=== PATIENT | female | born 1960 | race Caucasian/White ===

== ENCOUNTER 2024-04-16 17:32 | Emergency (ER) | payer OTHER, SELFPAY ==
[2024-04-16 17:35] VITALS: BP 178/95
--- NOTE | 2024-04-16 18:23 | ED.GENMED ---
History of Present Illness
General
Chief Complaint: Ear Problem
Source: patient
Exam Limitations: none
Time Seen by Provider: 04/16/24 17:55
Nursing documentation reviewed up to this point in time: agreed with
History of Present Illness
History of Present Illness:
63 y/o F with h/o previous otitis externa
says 3-4 days L ear pain
took naproxen earlier with mild relief
placed some drops of hydrogen peroxide and felt like she could hear better for a little but now has more muffled hearing
no facial swelkling, posterior ear pain, fever, chills, vomiting, congestion, sneezingt, sore throat
no h/o DM
denies any drainage from ear prior to placing the h2o2 drops
Past History
Past History
ED Past Medical History: Asthma, HTN, Psychiatric and Other
ED Past Surgical History: Other
Social History
Tobacco: Non-smoker
Alcohol: None
Drug: None
Personal:
Living: with family
Employment: Employed
Family History
Family History: Hypertension
Review of Systems
Review of Systems
Allergies reviewed?: Yes
All Other Systems: Not applicable
Phy Exam
Physical Exam
Physical Exam:
GENERAL: Alert , in no apparent distress
EYE: pupils equal and reactive
NECK: Supple
ENT: R tm clear
L ear canal moderate to severely swollen
what is visualized of posterior ear canal (tm region) is whitish
i cannot appreicate TM perforation
no blood
no mastoid tendernes
no [place]
no trismus
CARDIAC: Regular rate and rhythm, no edema
LUNGS: Clear breath sounds bilaterally, no acute respiratory distress, no wheezes/rales/rhonchi, occ cough
NEUROLOGICAL: Alert and oriented, no focal neuro deficits
SKIN: Warm and dry, skin intact.
PSYCH: Normal and appropriate interaction.
Course
Orders/Labs/Results
Orders:
Orders
04/16/24 18:08
Ciprofloxacin HCl [Cipro] 4 dropperett OTIC NOW STA
04/16/24 18:51
Acetaminophen [Tylenol] 1,000 mg PO NOW STA
Vital Signs
Initial and Last Documented VS:
Initial Vital Signs
Temp Pulse Resp BP Pulse Ox
98.1 F 93 18 178/95 98
04/16/24 17:35 04/16/24 17:35 04/16/24 17:35 04/16/24 17:35 04/16/24 17:35
Last Documented Vital Signs
Temp Pulse Resp BP Pulse Ox
98.1 F 93 18 178/95 98
04/16/24 17:35 04/16/24 17:35 04/16/24 17:35 04/16/24 17:35 04/16/24 17:35
MDM/Problems Addressed
Differential Diagnosis Includes:
OE, less likely perforated TM, om
MDM/Problems Addressed:
63 y/o F
who has been swimming recently
ear pain/hearing muffled a few days
pain worse todya
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
no uri sxs
moderate to severe edema canal mild erythema
no obvious bleeding/tm perf
no mastoid tenderness
no fever
no dm
ear wick inserted
cipro drops
*Critical Care Note
Total Time (30-74mins, 75-104mins- exclusive of procedures): Not Applicable
ED Attending Note
-
Portions of this chart may have been created with voice recognition software.� Occasional wrong word or��sound alike� substitutions may have occurred due to the inherent limitations of voice recognition software.
Discharge Plan
Departure
Patient Disposition: Home (Routine Discharge)
Date of Disposition: 04/16/24
Time of Disposition: 18:27
Patient with high blood pressure during this ER visit?: No
Condition: Fair
Covid-19: Not Applicable
Discharge Problem:
Acute Otitis Externa
Instructions: Outer Ear Infection (DC)
Prescriptions:
New
ciprofloxacin-dexamethasone 0.3-0.1 % drops,suspension
4 drp otic (ear) BID 7 Days Qty: 7.5 0RF
No Action
ibuprofen 600 MG tablet
600 mg PO Q6H Qty: 30 0RF
aspirin 325 MG tablet
325 mg PO DAILY PRN (Reason: pain)
albuterol sulfate [ProAir HFA] 90 mcg/actuation Hfa Aerosol Inhaler
1 puff INHALATION Q4HPRN PRN (Reason: shortness of breath) Qty: 8.5 0RF
(DME) Space Chamber Spacer
See Rx Instructions .Route Qty: 1 0RF
Rx Instructions:
As directed
prednisone 20 mg tablet
40 mg PO DAILY 5 Days Qty: 10 0RF
Referrals:
UNKNOWN - PT DOES,NOT KNOW [Unknown Provider] -
Activity Restrictions/Additional Instructions:
YOU HAVE AN EAR INFECTION
USE THE DROPS 4 DROPS IN YOUR LEFT EAR TWICE A DAY FOR 7 DAYS
THE EAR WICK WILL FALL OUT WHEN THE SWELLING DECREASES
FOLLOW UP WITH EAR NOSE AND THROAT DOCTOR NEEDED
YOU SHOULD TRY ZYRTEC OR CLARITIN ANTIHISTIMINE WELL
MOTRIN OR ALEVE FOR PAIN DIRECTED
RETURN FOR: SWELLING BEHIND THE EAR, FEVER, SEVERE PAIN, DRAINAGE OR ANY COCNERNS.
Interventions
Interventions:
*Risk Screen - Suicide Last Done: 04/16/24 17:35
*General Assessment Last Done: 04/16/24 17:35
*Neglect/Abuse Screening Last Done: 04/16/24 17:35
ED- Fall Risk Assessment Last Done: 04/16/24 19:02
*ED COVID-19 Vaccine History Last Done: 04/16/24 19:02
*Nursing Disposition Last Done: 04/16/24 19:02
Discharge Date and Time
Discharge Date/Time: 04/16/24 19:02
Print Language: IRAQI
[2024-04-16] MEDS: CIPRO 4 DROPPERETT OTIC (18:47)
[2024-04-16] MEDS: TYLENOL 1000 MG PO (18:57)
== END 2024-04-16 19:02 | disposition home or self-care (01) ==
LOC: EMR 17:32
PROVIDERS: EMERGENCY PHYSICIAN Emergency Medicine; FAMILY PHYSICIAN Family Medicine
DX: H60.502 Unspecified acute noninfective otitis externa, left ear (principal); I10 Essential (primary) hypertension; J45.909 Unspecified asthma, uncomplicated; M19.90 Unspecified osteoarthritis, unspecified site; F41.9 Anxiety disorder, unspecified; F32.A Depression, unspecified; Z88.8 Allergy status to other drugs, medicaments and biological substances; Z91.040 Latex allergy status
CPT/HCPCS: 99283

== ENCOUNTER 2024-06-18 19:01 | Emergency (ER) | payer OTHER, SELFPAY ==
[2024-06-18 19:02] VITALS: BP 140/76
[2024-06-18 19:26] LABS: % Basophils 0.6 % (0-2); % Eosinophils 0.4 % (0-6); % Immature Granulocytes 0.2 % (0-0.5); % Lymphocytes 27.4 % (20.5-51.1); % Monocytes 4.7 % (1.7-9.3); % Neutrophils 66.7 % (42.2-75.2); Absolute Lymphocytes 1.5 10^3/uL (1.2-3.4); Absolute Monocytes 0.3 10^3/uL (0.1-0.6); Absolute Neutrophils 3.5 10^3/uL (1.4-6.5); Hemoglobin 12.6 g/dL (12.0-16.0); Mean Corpuscular Hgb 28.5 pg (27.0-31.0); Mean Corpuscular Volume 79.2 fL (81.0-99.0); Mean Platelet Volume 9.4 fL (7.4-10.4); Nucleated Red Blood Cells % 0 %; Platelet Count 208 10^3/uL (130-400); Red Blood Cell Count 4.42 10^6/uL (4.20-5.40); Red Cell Dist. Width 12.8 % (11.5-14.5); White Blood Cell Count 5.3 10^3/uL (4.8-10.8)
[2024-06-18 19:39] LABS: ALT (SGPT) 27 U/L (0-35); AST (SGOT) 34 U/L (14-36); Albumin 4.3 g/dl (3.5-5.0); Alkaline Phosphatase 70 U/L (38-126); Blood Urea Nitrogen 14 mg/dl (7-17); Calcium 9.8 mg/dl (8.4-10.2); Carbon Dioxide 25 mmol/L (22-30); Chloride 95 mmol/L (98-107); Glucose 114 mg/dl (70-99); Potassium 3.7 mmol/L (3.5-5.1); Sodium 130 mmol/L (135-145); Total Bilirubin 0.3 mg/dl (0.2-1.3); Total Protein 6.3 g/dl (6.3-8.2); eGFR > 60.00
[2024-06-18 19:42] LABS: COVID-19 Antigen Negative (Negative)
[2024-06-18 19:54] LABS: Troponin I < 0.012 ng/ml
[2024-06-18 20:49] LABS: Urine Albumin Negative (Neg - Trace); Urine Bilirubin Negative (Negative); Urine Character Clear (Clear); Urine Color Yellow; Urine Glucose Negative (Negative); Urine Ketone Negative (Negative); Urine Leukocyte Negative (Negative); Urine Nitrite Negative (Negative); Urine Occult Blood Negative (Negative); Urine Urobilinogen Negative (Neg - 1+); Urine pH 6.5 (5.0-9.0)
--- NOTE | 2024-06-18 20:53 | ED.GENMED ---
History of Present Illness
General
Chief Complaint: Weakness
Source: patient
Exam Limitations: none
Time Seen by Provider: 06/18/24 20:21
History of Present Illness
History of Present Illness:
This is a 64 year old female that comes in with c/o feeling weak and tired. States that she does 3-12 hour shifts and then she has time off. Tonight was her third night and she went into work. States that she works a [employer] and she
was unable to lift the boxes. States that she just felt so tired and weak. States that when she got up today she didn't really eat. States that she has a cough. Denies any fever, chills, chest pain, SOB, abd pain, nausea, vomiting, diarrhea,
headache, dizziness, urinary burning.
Past History
Past History
ED Past Medical History: Asthma, HTN, Psychiatric (Anxiety, Depression, ), Other (Back pain, Uterine fibroid) and Other
ED Past Surgical History: Gynecological (Cyst removed from labia) and Other (Hemorrhoidectomy, )
Social History
Tobacco: Non-smoker
Alcohol: None
Drug: None
Personal:
Living: with family
Employment: Employed
Family History
Family History: Hypertension
Review of Systems
Review of Systems
All Other Systems: ROS reviewed and negative except as documented in HPI and ROS
Constitutional: Reports fatigue; Denies fever or chills
EENT: Reports no symptoms
Respiratory: Reports cough; Denies trouble breathing
Cardiac: Reports no symptoms; Denies chest pain
ABD/GI: Reports no symptoms; Denies abdominal pain, nausea, vomiting or diarrhea
: Reports no symptoms; Denies dysuria, frequency or urgency
Musculoskeletal: Reports no symptoms
Skin: Reports no symptoms
Neurological: Reports weakness; Denies dizzy or headache
Psychiatric: Reports no symptoms
Phy Exam
General Physical Exam
General Presentation: no apparent distress
General age: appears stated age
General Skin: warm and dry
General Habitus: normal
General Mental: alert
General Hydration: dry mucous membranes
ENT Exam
ENT Exam: TM's normal, pharynx normal and neck supple
Eye Exam
Eye Exam: EOMI
Cardiovascular Exam
Cardiovascular Exam: regular rate/rhythm, no edema, no murmur and normal peripheral pulses
Pulmonary Exam
Pulmonary Exam: lungs clear, no respiratory distress, no rales, chest non tender, no crackles, no rhonchi, no wheezing and no cough
Gastrointestinal Exam
Gastrointestinal Exam: normal bowel sounds, non tender, soft, no organomegaly, no pulsatile mass and non distended
Musculoskeletal Exam
Musculoskeletal Exam: full ROM and no edema
Skin Exam
Skin Exam: normal color, warm/dry, no rash and no petechia
Psychiatric Exam
Psychiatric Exam: normal mood/affect
Course
Orders/Labs/Results
Orders:
Orders
06/18/24 19:08
Electrocardiogram (*1) Urgent
Reason for Study: Fatigue / Weakness
EKG- Treatment ONCE
CXR2 [CR Chest - 2 Views ] Urgent
Comment:
Reason For Exam: cough
06/18/24 19:17
CMP [Comprehensive Metabolic Panel] Urgent
COVID-19 Antigen Urgent
Source: Nasal Swab
Complete Blood Count/With Diff Urgent
Troponin I Urgent
06/18/24 20:34
Urinalysis Reflex To Culture Urgent
Date Specimen was Collected: 06/18/24
Time Specimen was Collected: 19:08
Abnormal Lab Results
06/18/24
19:17
Hct 35.0 L %
(37.0-47.0)
MCV 79.2 L fL
(81.0-99.0)
Sodium 130 L mmol/L
(135-145)
Chloride 95 L mmol/L
(98-107)
Glucose 114 H mg/dl
(70-99)
06/18/24 19:17
06/18/24 19:17
Hyponatremia, Chloride low. Hyperglycemia. Troponin <0.012, COVID negative. Urine negative for infection.
Vital Signs
Initial and Last Documented VS:
Initial Vital Signs
Temp Pulse Resp BP Pulse Ox
98.6 F 75 20 140/76 98
06/18/24 19:02 06/18/24 19:02 06/18/24 19:02 06/18/24 19:02 06/18/24 19:02
Last Documented Vital Signs
Temp Pulse Resp BP Pulse Ox
98.6 F 75 20 140/76 97
06/18/24 19:02 06/18/24 19:02 06/18/24 19:02 06/18/24 19:02 06/18/24 20:41
MDM/Problems Addressed
Differential Diagnosis Includes:
fatigue, PNA, UTI
MDM/Problems Addressed:
This is a 64 year old female that comes in with c/o weakness/fatigue. States that this is her third night of 3-12 hour shifts. States that she was just to tired that she couldn't even lift he boxes.
Will check labs, Urine and chest x-ray. COVID.
Back into see patient. Explained that her Sodium is slightly low. Patient to try eating some canned soup or boxed food that is higher in sodium. Patient to follow up with the family doctor for further evaluation. Patient to return with any concerns.
Chronic conditions affecting care:
NA
Acute Exacerbation and/or Progression of Chronic Illness:
NA
*Radiology
Radiology exam reviewed: radiology read reviewed (Chest-No acute cardiopulmonary process)
*Pulse Oximetry
Patient hypoxic: no
*EKG
Interpreted by ED Provider?: Yes
Heart Rate: 70
Rate: normal
Rhythm: sinus
[place]: normal axis
Interval: normal interval
QRS Pattern: normal QRS
Ischemia: no ischemia
*Drawer Maker Interpretation
Rate: Drawer Maker- N/A
*Critical Care Note
Total Time (30-74mins, 75-104mins- exclusive of procedures): Not Applicable
ED Attending Note
-
Portions of this chart may have been created with voice recognition software.� Occasional wrong word or��sound alike� substitutions may have occurred due to the inherent limitations of voice recognition software.
Discharge Plan
Departure
Patient Disposition: Home (Routine Discharge)
Date of Disposition: 06/18/24
Time of Disposition: 22:05
Patient with high blood pressure during this ER visit?: Yes
Condition: Good
Covid-19: Negative COVID-19
Discharge Problem:
Fatigue
Instructions: Fatigue (DC), BLOOD PRESSURE
Prescriptions:
No Action
ibuprofen 600 MG tablet
600 mg PO Q6H Qty: 30 0RF
aspirin 325 MG tablet
325 mg PO DAILY PRN (Reason: pain)
albuterol sulfate [ProAir HFA] 90 mcg/actuation Hfa Aerosol Inhaler
1 puff INHALATION Q4HPRN PRN (Reason: shortness of breath) Qty: 8.5 0RF
(DME) Space Chamber Spacer
See Rx Instructions .Route Qty: 1 0RF
Rx Instructions:
As directed
prednisone 20 mg tablet
40 mg PO DAILY 5 Days Qty: 10 0RF
ciprofloxacin-dexamethasone 0.3-0.1 % drops,suspension
4 drp otic (ear) BID 7 Days Qty: 7.5 0RF
Activity Restrictions/Additional Instructions:
As discussed, your blood work shows that your sodium is a little low. Please try eating some canned soup or boxed food that is higher in sodium. You are negative for COVID and your urine is negative for infection. Your Chest X-ray is normal. Please
limit your water intake to 6-8oz glasses daily. Follow up with the family doctor for further evaluation. IF YOUHAVE ANY OTHER CONCERNS PLEASE RETURN TO THE EMERGENCY ROOM.
Interventions
Interventions:
*Risk Screen - Suicide Last Done: 06/18/24 19:02
*General Assessment Last Done: 06/18/24 19:02
*Neglect/Abuse Screening Last Done: 06/18/24 19:02
ED- Fall Risk Assessment Last Done: 06/18/24 19:02
*ED COVID-19 Vaccine History Last Done: 06/18/24 19:02
ED- Cardiac Assessment Last Done: 06/18/24 20:41
ED- Neurological Assessment Last Done: 06/18/24 20:41
ED- Pulmonary Assessment Last Done: 06/18/24 20:41
Discharge Date and Time
Print Language: [place]
[2024-06-18 22:22] VITALS: BP 128/74
== END 2024-06-18 22:23 | disposition home or self-care (01) ==
LOC: EMR 19:01
PROVIDERS: Emergency Medicine; EMERGENCY PHYSICIAN Emergency Medicine; FAMILY PHYSICIAN Family Medicine
DX: R53.83 Other fatigue (principal); Z11.52 Encounter for screening for COVID-19; I10 Essential (primary) hypertension
CPT/HCPCS: 99285; 71046; 80053; 81003; 84484; 85025; 87811; 93005

== ENCOUNTER → 2024-10-04 14:12 | Outpatient (REF) | payer OTHER, SELFPAY | LOC: WDC 14:12 | PROVIDERS: ATTENDING PHYSICIAN Family Medicine | DX: Z12.31 Encounter for screening mammogram for malignant neoplasm of breast (principal); M85.80 Other specified disorders of bone density and structure, unspecified site; Z13.820 Encounter for screening for osteoporosis | CPT/HCPCS: 77063; 77067; 77080 ==

== ENCOUNTER 2025-01-08 21:14 | Emergency (ER) | payer BC, SELFPAY ==
--- NOTE | 2025-01-08 21:19 | ED.GENMED ---
History of Present Illness
General
Chief Complaint: Dizziness
Time Seen by Provider: 01/08/25 21:19
History of Present Illness
History of Present Illness:
TIME OF INITIAL ENCOUNTER: 9:20 PM
HPI: Patient came in by ambulance. 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 When she stood up she suddenly had dizziness and then started vomiting. She did not pass out. She has worsening of her restless legs currently. She feels
that she has trouble keeping her eyes open. Her back is hurting her as well laying on the stretcher.
EXAM:
GENERAL: The patient appears somewhat uncomfortable
HEENT: Moist oral mucosa
CARDIOVASCULAR: No murmurs, normal heart rate, regular rhythm, No chest wall tenderness
PULMONARY: No respiratory distress, breath sounds are clear and equal
ABDOMEN: Soft with no peritoneal signs, no tenderness
NEUROLOGIC: Excellent strength all extremities, no coordination deficits
PSYCHIATRIC: Appears somewhat anxious
EXTREMITIES: Restless legs noted, nontender, no edema, moves all extremities equally
SKIN: No rash, no lesions
NUMBER AND COMPLEXITY OF PROBLEMS ADDRESSED AT THE ENCOUNTER
� Chronic conditions affecting care: High blood pressure, anxiety/depression, asthma
� Acute Exacerbation and/or Progression of Chronic Illness: This is an acute problem
� Differential Diagnosis includes: Exacerbation of restless leg syndrome, labyrinthitis, intracranial pathology, viral syndrome, BPPV
AMOUNT AND/OR COMPLEXITY OF DATA TO BE REVIEWED AND ANALYZED
� I performed an independent evaluation of and my interpretation is:
EKG:
CT: CT head personally reviewed and I see no acute abnormality
X-rays:
Laboratory Studies: Sodium is slightly low at 128, creatinine 1.1, CBC unremarkable
Other:
� Review of other/old records: I reviewed records, the patient is had several ED visits over the last several years, most recently related to fatigue.
� Clinical information was obtained by an independent historian: None needed
� Prescriptions/Medications Considered but not given:
� Further testing considered but not performed:
RISK OF COMPLICATIONS AND/OR MORBIDITY OR MORTALITY OF PATIENT MANAGEMENT
� Social determinants of health affecting care: Lives at home, is employed
� Discussion with other providers:
� Escalation of care including admission/observation vs risk of discharge considered: The patient was given IV fluids, Zofran, and Ativan upon arrival.
ANY OTHER UPDATES:
10:45 PM: On reassessment, patient appears much improved. Sodium is slightly low but overall she feels much better after IV fluids were given. Symptoms may have been related to positional vertigo however she has a nonfocal neurologic examination
and is overall much improved after meds given.
Past History
Past History
ED Past Medical History: Asthma, HTN, Psychiatric (Anxiety, Depression, ), Other (Back pain, Uterine fibroid) and Other
ED Past Surgical History: Gynecological (Cyst removed from labia) and Other (Hemorrhoidectomy, )
Social History
Tobacco: Non-smoker
Alcohol: None
Drug: None
Personal:
Living: with family
Employment: Employed
Family History
Family History: Hypertension
Phy Exam
Physical Exam
Physical Exam:
See HPI
Course
Orders/Labs/Results
Orders:
Orders
01/08/25 21:22
CT Head W/o Iv Contrast Urgent
Comment:
Reason For Exam: abrupt onset dizzy and vomiting
0.9% Sodium Chloride 1000 ml [Nss] 1,000 ml IV BOLUS
Lorazepam [Ativan] 1 mg IV NOW STA
Ondansetron Injectable [Zofran] 4 mg IV NOW STA
01/08/25 21:27
Basic Metabolic Panel Urgent
Complete Blood Count/With Diff Urgent
Abnormal Lab Results
01/08/25
21:27
Hct 34.6 L %
(37.0-47.0)
MCV 80.8 L fL
(81.0-99.0)
Sodium 128 L mmol/L
(135-145)
Carbon Dioxide 18 L mmol/L
(22-30)
Creatinine 1.1 H mg/dL
(0.6-1.0)
Glucose 127 H mg/dl
(70-99)
01/08/25 21:27
01/08/25 21:27
Vital Signs
Initial and Last Documented VS:
Initial Vital Signs
Temp Pulse Resp Pulse Ox
36.7 C 64 18 99
01/08/25 21:16 01/08/25 21:16 01/08/25 21:16 01/08/25 21:16
Last Documented Vital Signs
Temp Pulse Resp BP Pulse Ox
36.7 C 60 18 138/74 99
01/08/25 21:16 01/08/25 21:40 01/08/25 21:40 01/08/25 21:40 01/08/25 21:40
*Critical Care Note
Total Time (30-74mins, 75-104mins- exclusive of procedures): Not Applicable
ED Attending Note
-
Portions of this chart may have been created with voice recognition software.� Occasional wrong word or��sound alike� substitutions may have occurred due to the inherent limitations of voice recognition software.
Discharge Plan
Departure
Patient Disposition: Home (Routine Discharge)
Date of Disposition: 01/08/25
Time of Disposition: 22:59
Patient with high blood pressure during this ER visit?: Yes
Discharge Problem:
Dizziness
Instructions: Vertigo (a Type of Dizziness) (DC), BLOOD PRESSURE
Prescriptions:
No Action
ibuprofen 600 MG tablet
600 mg PO Q6H Qty: 30 0RF
aspirin 325 MG tablet
325 mg PO DAILY PRN (Reason: pain)
albuterol sulfate [ProAir HFA] 90 mcg/actuation Hfa Aerosol Inhaler
1 puff INHALATION Q4HPRN PRN (Reason: shortness of breath) Qty: 8.5 0RF
(DME) Space Chamber Spacer
See Rx Instructions .Route Qty: 1 0RF
Rx Instructions:
As directed
prednisone 20 mg tablet
40 mg PO DAILY 5 Days Qty: 10 0RF
ciprofloxacin-dexamethasone 0.3-0.1 % drops,suspension
4 drp otic (ear) BID 7 Days Qty: 7.5 0RF
Activity Restrictions/Additional Instructions:
Basic blood work is relatively unremarkable however your sodium level was slightly low. We did give you some IV fluid (salt water). We also gave you some Ativan as well as nausea medicine. Return here if worse or other concerns. CAT scan of the
brain was read by the radiologist and he did not see any abnormality.
Interventions
Interventions:
*Risk Screen - Suicide Last Done: 01/08/25 21:16
*General Assessment Last Done: 01/08/25 21:16
*Neglect/Abuse Screening Last Done: 01/08/25 21:16
ED- Neurological Assessment Last Done: 01/08/25 21:41
Discharge Date and Time
Print Language: ROMAN[place]
[2025-01-08 21:26] VITALS: BP 138/74
[2025-01-08] MEDS: ZOFRAN 4 MG IV (21:31)
[2025-01-08] MEDS: NSS 1000 IV (21:31)
[2025-01-08] MEDS: ATIVAN 1 MG IV (21:31)
[2025-01-08 21:39] VITALS: BMI 31.4
[2025-01-08 21:40] VITALS: BP 138/74
[2025-01-08 21:46] LABS: % Eosinophils 0.2 % (0-6); % Immature Granulocytes 0.5 % (0-0.5); % Lymphocytes 24.8 % (20.5-51.1); % Neutrophils 68.5 % (42.2-75.2); Absolute Basophils 0.1 10^3/uL (0-0.2); Absolute Lymphocytes 1.5 10^3/uL (1.2-3.4); Absolute Monocytes 0.3 10^3/uL (0.1-0.6); Absolute Neutrophils 4.3 10^3/uL (1.4-6.5); Hematocrit 34.6 % (37.0-47.0); Hemoglobin 12.5 g/dL (12.0-16.0); Mean Corp Hgb Conc. 36.1 g/dL (33.0-37.0); Mean Corpuscular Hgb 29.2 pg (27.0-31.0); Mean Corpuscular Volume 80.8 fL (81.0-99.0); Mean Platelet Volume 10.3 fL (7.4-10.4); Nucleated Red Blood Cells % 0 %; Platelet Count 196 10^3/uL (130-400); Red Blood Cell Count 4.28 10^6/uL (4.20-5.40); Red Cell Dist. Width 13.2 % (11.5-14.5); White Blood Cell Count 6.2 10^3/uL (4.8-10.8)
[2025-01-08 21:59] LABS: Blood Urea Nitrogen 15 mg/dl (7-17); Calcium 9.2 mg/dl (8.4-10.2); Carbon Dioxide 18 mmol/L (22-30); Chloride 103 mmol/L (98-107); Estimated Creatinine Clearance 55 ml/min; Glucose 127 mg/dl (70-99); Sodium 128 mmol/L (135-145); eGFR 55.76
[2025-01-08 22:00] VITALS: BP 128/79
[2025-01-08 23:01] VITALS: BP 173/86
== END 2025-01-08 23:30 | disposition home or self-care (01) ==
LOC: EMR 21:14
PROVIDERS: EMERGENCY PHYSICIAN Emergency Medicine; FAMILY PHYSICIAN Family Medicine
DX: R42 Dizziness and giddiness (principal); R11.10 Vomiting, unspecified; I10 Essential (primary) hypertension; J45.909 Unspecified asthma, uncomplicated; G25.81 Restless legs syndrome; F41.9 Anxiety disorder, unspecified
CPT/HCPCS: 96374; 96375; 96361; 99284; 70450; 80048; 85025; 93005

== ENCOUNTER 2025-01-30 02:45 | Inpatient (IN) | payer BC, SELFPAY ==
[2025-01-29] VITALS (7 sets, daily range): BP systolic 94–133; BP diastolic 61–110
--- NOTE | 2025-01-29 22:10 | ED.GENMED ---
History of Present Illness
General
Chief Complaint: Breathing Problem
Time Seen by Provider: 01/29/25 22:10
History of Present Illness
History of Present Illness:
TIME OF INITIAL EVALUATION
- 10:10 PM
REVIEW OF OLD RECORDS
- The patient was seen in the emergency department by me a couple of weeks ago with dizziness�at that time she felt better after IV fluids were given.
Note:
CHIEF COMPLAINT(S)
Nausea and vomiting.
HISTORY OF PRESENT ILLNESS
The patient is a 64-year-old female presenting with nausea and vomiting. The symptoms began approximately four weeks ago and were initially accompanied by dizziness and diarrhea. The patient reports episodes of syncope and difficulty ambulating. She
states her symptoms worsened after starting semaglutide (Wegovy) two months prior, which she discontinued two weeks ago due to adverse effects. She also reports persistent nausea exacerbated by minimal fluid intake, such as water or coffee, and
states, �Even a tablespoon of water' causes nausea. The patient describes a sensation of thick mucus in her throat and occasional cough productive of mucus. She denies current abdominal pain. No computed tomography (CT) scan of the abdomen has been
performed to date. The patient is awaiting a Gastroenterology (GI) appointment later in the month. She has utilized albuterol inhalation treatments for asthma exacerbations. Current medications include anti-nausea treatment.
ADDITIONAL HISTORY OBTAINED FROM SOURCES OTHER THAN THE PATIENT
According to the patient�s primary care visit, the nausea and dizziness were attributed to the use of semaglutide (Wegovy).
SOCIAL DETERMINANTS AFFECTING HEALTH
The patient mentions difficulty accessing timely GI and neurology appointments, noting frustrations with appointment availability in the area.
PHYSICAL EXAM
Nursing notes reviewed and vital signs reviewed.
- Throat: Mild erythema, airway patent.
PLAN
Administer intravenous fluids and antiemetic medication. Consider the use of an H2 bonnie such as famotidine (Pepcid) for gastric symptoms. Arrange for an abdominal CT scan to evaluate gastrointestinal concerns. Perform blood work. Reassess
symptoms after interventions and explore possible causes for prolonged symptoms.
DIFFERENTIAL DIAGNOSIS
The Differential Diagnosis includes, in no particular order and is not limited to:
1. Gastroesophageal reflux disease (GERD)
2. Peptic ulcer disease
3. Medication-induced gastritis
4. Viral gastroenteritis
5. Esophagitis
6. Gastroparesis
7. Adverse drug reaction to semaglutide
8. Hiatal hernia
9. Anxiety-related symptoms
10. Obstructive lung disease exacerbation (asthma-related nausea)
RADIOLOGY
- CT imaging obtained. This was obtained without IV contrast as the patient has SANJUANA. CT shows no evidence of bowel obstruction, noninflamed appendix, no evidence of diverticulitis, no kidney stones
EKG
- Sinus [address] abnormality, QTc 498 now prolonged
LABS
- White count normal at 8.7, hemoglobin 12.7, potassium 2.8, bicarb 16, creatinine 1.9 which is new compared to creatinine 1.1 in December
UPDATE
- The patient was given IV fluids and potassium orally and IV. CT imaging obtained. Gave IV fluids, Zofran, and Pepcid.
SUMMARY OF ENCOUNTER
The patient presented with nausea and vomiting, and there was a review of various symptoms, including low potassium levels and poor kidney function. Initial management has improved the patients symptoms.
DISPOSITION
The patient is to be admitted to the hospital for further evaluation and management.
ASSESSMENT
The patients potassium levels were found to be low at 2.8. Additionally, the patient has poor kidney function with a creatinine level of 1.9 and low bicarbonate levels, potentially due to dehydration.
EMERGENCY TREATMENTS ADMINISTERED
Intravenous potassium was administered to address hypokalemia.
INDEPENDENT REVIEW OF LABS AND INTERPRETATION OF TESTS
- My independent review of the CT scan is that there are no signs of blockages, infection, kidney stones, or perforated ulcer.
MEDICAL DECISION MAKING
1. Number & Complexity of Problems: Chronic conditions affecting care include nausea and vomiting, dehydration, and possibly impaired renal function.
2. Data Reviewed:
- Category 1: CT scan and laboratory results, including low potassium and bicarbonate levels, were reviewed.
3. Risk: Consideration of admission was made due to the complexity of electrolyte imbalances and potential dehydration. Outpatient management is not appropriate given poor kidney function and low potassium levels.
PATHOLOGIES TO CONSIDER
- Electrolyte imbalance (hypokalemia).
- Acute kidney injury or chronic kidney disease (based on creatinine level).
- Dehydration-related complications.
- Potential for peptic ulcer disease or gastritis.
Past History
Past History
ED Past Medical History: Asthma, HTN, Psychiatric (Anxiety, Depression, ), Other (Back pain, Uterine fibroid) and Other
ED Past Surgical History: Gynecological (Cyst removed from labia) and Other (Hemorrhoidectomy, )
Social History
Tobacco: Non-smoker
Alcohol: None
Drug: None
Personal:
Living: with family
Employment: Employed
Family History
Family History: Hypertension
Phy Exam
Physical Exam
Physical Exam:
See HPI
Scores
Heart Failure Risk
Heart Failure Risk Score: Not Applicable
Course
Orders/Labs/Results
Orders:
Orders
01/29/25 22:17
0.9% Sodium Chloride 1000 ml [Nss] 1,000 ml IV BOLUS
Famotidine [Pepcid] 20 mg IV NOW STA
Ondansetron HCl [Zofran] 4 mg PO NOW STA
01/29/25 22:26
Complete Blood Count/With Diff Urgent
Comprehensive Metabolic Panel Urgent
Lipase Urgent
01/29/25 23:12
CT Abd/pel Without Iv Or Oral Urgent
Comment:
Reason For Exam: upper abd pain renal insuff
01/29/25 23:13
Potassium Chloride [KCl] 20 meq PO NOW STA
01/29/25 23:22
Potassium Chloride [KCl] 40 meq Dextrose 5%/Water 250 ml [D5w] 250 ml IV NOW
01/29/25 23:50
Electrocardiogram (*1) Urgent
Reason for Study: Abdominal Pain
EKG- Treatment ONCE
Abnormal Lab Results
01/29/25
22:26
Hct 35.1 L %
(37.0-47.0)
MCV 80.9 L fL
(81.0-99.0)
Abs Immat Gran (auto) 0.1 H 10^3/uL
(0-0.05)
Immature Gran % 0.6 H %
(0-0.5)
Potassium 2.8 L mmol/L
(3.5-5.1)
Carbon Dioxide 16 L mmol/L
(22-30)
BUN 25 H mg/dl
(7-17)
Creatinine 1.9 H mg/dL
(0.6-1.0)
Calcium 10.3 H mg/dl
(8.4-10.2)
01/29/25 22:26
01/29/25 22:26
Vital Signs
Initial and Last Documented VS:
Initial Vital Signs
Temp Pulse Resp BP Pulse Ox
37.0 C 101 20 133/110 98
01/29/25 18:53 01/29/25 18:53 01/29/25 18:53 01/29/25 18:53 01/29/25 18:53
Last Documented Vital Signs
Temp Pulse Resp BP Pulse Ox
37.0 C 73 28 96/80 97
01/29/25 18:53 01/30/25 00:01 01/30/25 00:01 01/30/25 00:01 01/29/25 22:11
*Pulse Oximetry
SaO2: 97
Oxygen Mode of Delivery: Room air
Patient hypoxic: no
*Critical Care Note
Total Time (30-74mins, 75-104mins- exclusive of procedures): Not Applicable
ED Attending Note
-
Portions of this chart may have been created with voice recognition software.� Occasional wrong word or��sound alike� substitutions may have occurred due to the inherent limitations of voice recognition software.
Discharge Plan
Departure
Prescriptions:
No Action
ibuprofen 600 MG tablet
600 mg PO Q6H Qty: 30 0RF
aspirin 325 MG tablet
325 mg PO DAILY PRN (Reason: pain)
albuterol sulfate [ProAir HFA] 90 mcg/actuation Hfa Aerosol Inhaler
1 puff INHALATION Q4HPRN PRN (Reason: shortness of breath) Qty: 8.5 0RF
(DME) Space Chamber Spacer
See Rx Instructions .Route Qty: 1 0RF
Rx Instructions:
As directed
prednisone 20 mg tablet
40 mg PO DAILY 5 Days Qty: 10 0RF
ciprofloxacin-dexamethasone 0.3-0.1 % drops,suspension
4 drp otic (ear) BID 7 Days Qty: 7.5 0RF
Referrals:
Osiel Thomas MD [Family Provider, Family Practice]
Interventions
Interventions:
*Risk Screen - Suicide Last Done: 01/29/25 19:20
*General Assessment Last Done: 01/29/25 18:53
*Neglect/Abuse Screening Last Done: 01/29/25 19:20
*ED- Fall Risk Assessment Last Done: 01/29/25 19:20
*ED COVID-19 Vaccine History Last Done: 01/29/25 19:20
ED- Cardiac Assessment Last Done: 01/29/25 19:20
ED- Pulmonary Assessment Last Done: 01/29/25 19:20
Discharge Date and Time
Print Language: SWISS
[2025-01-29] MEDS: PEPCID 20 MG IV (22:24)
[2025-01-29] MEDS: ZOFRAN 4 MG PO (22:24)
[2025-01-29] MEDS: NSS 1000 IV (22:25)
[2025-01-29 22:47] LABS: % Basophils 0.5 % (0-2); % Eosinophils 2.2 % (0-6); % Immature Granulocytes 0.6 % (0-0.5); % Lymphocytes 32.7 % (20.5-51.1); % Monocytes 7.1 % (1.7-9.3); % Neutrophils 56.9 % (42.2-75.2); Absolute Eosinophils 0.2 10^3/uL (0-0.7); Absolute Immature Granulocytes 0.1 10^3/uL (0-0.05); Absolute Lymphocytes 2.9 10^3/uL (1.2-3.4); Absolute Monocytes 0.6 10^3/uL (0.1-0.6); Hematocrit 35.1 % (37.0-47.0); Hemoglobin 12.7 g/dL (12.0-16.0); Mean Corp Hgb Conc. 36.2 g/dL (33.0-37.0); Mean Corpuscular Hgb 29.3 pg (27.0-31.0); Mean Corpuscular Volume 80.9 fL (81.0-99.0); Mean Platelet Volume 9.7 fL (7.4-10.4); Nucleated Red Blood Cells % 0 %; Platelet Count 357 10^3/uL (130-400); Red Blood Cell Count 4.34 10^6/uL (4.20-5.40); Red Cell Dist. Width 12.5 % (11.5-14.5); White Blood Cell Count 8.7 10^3/uL (4.8-10.8)
[2025-01-29 23:07] LABS: ALT (SGPT) 33 U/L (0-35); AST (SGOT) 26 U/L (14-36); Albumin 4.4 g/dl (3.5-5.0); Alkaline Phosphatase 88 U/L (38-126); Blood Urea Nitrogen 25 mg/dl (7-17); Calcium 10.3 mg/dl (8.4-10.2); Carbon Dioxide 16 mmol/L (22-30); Chloride 107 mmol/L (98-107); Glucose 84 mg/dl (70-99); Lipase 156 U/L (23-300); Potassium 2.8 mmol/L (3.5-5.1); Sodium 135 mmol/L (135-145); Total Bilirubin 0.7 mg/dl (0.2-1.3); Total Protein 6.7 g/dl (6.3-8.2); eGFR 28.94
[2025-01-29] MEDS: KCL 20 MEQ PO (23:47)
[2025-01-29] MEDS: KCL 270 MEQ IV (23:47)
[2025-01-30] VITALS (9 sets, daily range): BP systolic 96–136; BP diastolic 52–80; PULSE 60–88; BMI 28.1; BMI 28.6
[2025-01-30] MEDS: PROTONIX IV 40 MG IV (01:23)
--- NOTE | 2025-01-30 02:01 | HPS.HSE ---
Family Physician
-
Family Physician: Osiel Thomas
Chief Complaint
-
N/V
History of Present Illness
Patient is a 64y F with PMH significant for bipolar disorder and hypertension who presents to ED complaining of N/V and dizziness x several weeks. Patient states that she started on Wegovy about 3 months ago for weight loss. She developed N/V
and dizziness about one month ago. She states that she had a syncopal episode while at work and was seen here in the ED on 01/08. Her symptoms were attributed to Wegovy and patient discontinued this. She states that her last dose was about one
month ago now. Unfortunately, she has continued to have nausea, emesis, diarrhea and generalized weakness. She complains of intermittent dizziness / room spinning sensation.
She further notes that she was started on abx 7-10 days ago for UTI - she is not sure which abx.
No other recent med changes.
Medical History
Past Medical History
Past Medical History: Reports Other
Additional Past Medical History:
Hypertension
Bipolar Disorder
GERD
Asthma
Obesity
Past Surgical History: Reports Other
Additional Past Surgical History:
Hemorrhoidectomy
Labia Resection (cyst)
Social History
Tobacco: Non-smoker
Alcohol: None
Drug: None
Family History
Family History: Not pertinent
Allergies / Home Medications
Allergies reflects when Allergies were last updated in [employer].
Home Medications with original date entered in [facility]
Allergy/Medication List:
Patient knows some medication names, but no doses / frequency data.
Will need to confirm / reconcile in the AM.
If medication reconciliation has not been performed, why?: Medication List N/A
Review of Systems
-
History Source: Patient
A 12 point ROS was completed and negative except as noted: Yes
Constitutional: Reports Fatigue; Denies Fever or Chills
EENT: Denies Sore Throat
Respiratory: Denies Cough or Trouble Breathing
Cardiac: Denies Chest Pain or Palpitations
Abdomen/GI: Reports Nausea, Vomiting and Diarrhea; Denies Abdominal Pain, Bloody Stools or Black Stools
: Reports Dysuria; Denies Flank Pain, Incontinence or Bleeding
Musculoskeletal: Denies Joint Pain or Edema
Neurological: Reports Dizzy, Headache and Weakness; Denies Numbness
Psych: Denies Depression or Anxiety
Physical Exam
Vital Signs
Vital Signs
Temp Pulse Resp BP Pulse Ox
98.6 F 78 32 111/79 97
01/29/25 18:53 01/30/25 01:30 01/30/25 01:15 01/30/25 01:00 01/29/25 22:11
Physical Exam
General: Other (Somewhat restless / hyperactive 64y F.)
HEENT: Other (Dry MM, neck supple.)
Respiratory: Clear; No Wheezes, Rales or Rhonchi
Cardiac: S1/S2 and Regular Rhythm; No Murmur
GI: Soft, Non Tender, Non Distended and Normal Bowel Sounds
Musculoskeletal: No Clubbing, No Cyanosis and No Edema
Neuro: AO x 3 and Nonfocal/grossly intact
Laboratory Results
-
01/29/25 22:26
01/29/25 22:26
Laboratory Results
Total Bilirubin 0.7 mg/dl (0.2-1.3) 01/29/25 22:26
AST 26 U/L (14-36) 01/29/25 22:26
ALT 33 U/L (0-35) 01/29/25 22:26
Alkaline Phosphatase 88 U/L (38-126) 01/29/25 22:26
Lipase 156 U/L (23-300) 01/29/25 22:26
Impression/Plan
-
A/P: Patient is a 64y F with PMH significant for bipolar disorder and hypertension who presents to ED complaining of intractable N/V/D x weeks.
Intractable N/V/D
SANJUANA secondary to the above
Hypokalemia secondary to the above
Hypercalcemia secondary to the above
Non-Gapped Metabolic Acidosis secondary to the above
- Admit for further evaluation and treatment.
- SCr = 1.9 compared to prior baseline of 1.1.
- IVF support / electrolyte replacement.
- Supportive care / antiemetics / etc.
- Symptoms potentially due to Wegovy - though patient states her last dose was one month ago with no improvement in N/V.
- Given concurrent dizziness, will check MR brain in the AM to rule-out posterior CVA, etc.
- Follow for improvement in labs / lytes and adjust IVFs as needed.
- Follow for improvement in symptoms.
Recent UTI
- Patient reports diagnosis of UTI > 1 week ago and indicates that she has been on abx since that time.
- No further dysuria or other symptoms.
- Would hold further abx for now as > 1 week is certainly sufficient course.
- ? if abx are clouding issue re: GI symptoms.
- Follow for any new / recurrent symptoms.
Benign Hypertension
- Hold hypertensive medications acutely.
Bipolar Disorder
- Somewhat restless / hyperactive in the ED.
- Continue psychotropic med regimen.
- Ordered some meds based on patient history and prior records in Med Summary.
- Need to confirm / clarify with pharmacy in the Am and adjust as needed.
- Monitor for any increase in agitation / anxiety / etc.
Hypothyroidism
- Update TFTs. Ordered 25mcg T4 supplementation based on old records - adjust if needed.
Obesity due to excess calories
- Remain off of Wegovy or similar agents.
- Encourage healthy diet / increased activity with goal of weight loss.
DVT Prophylaxis: Lovenox
Code Status: Full
[2025-01-30] MEDS: KLONOPIN 0.5 MG PO ×3 (02:29→19:44)
[2025-01-30] MEDS: SYNTHROID 25 MCG PO (03:44)
[2025-01-30] MEDS: NSS with KCL 20 MEQ 1000 IV ×3 (04:44→18:15)
[2025-01-30 07:46] LABS: Hematocrit 32.1 % (37.0-47.0); Hemoglobin 11.2 g/dL (12.0-16.0); Mean Corp Hgb Conc. 34.9 g/dL (33.0-37.0); Mean Corpuscular Hgb 29.3 pg (27.0-31.0); Mean Platelet Volume 9.8 fL (7.4-10.4); Platelet Count 312 10^3/uL (130-400); Red Blood Cell Count 3.82 10^6/uL (4.20-5.40); Red Cell Dist. Width 13.2 % (11.5-14.5); White Blood Cell Count 4.5 10^3/uL (4.8-10.8)
[2025-01-30] MEDS: GEODON 60 MG PO (07:51)
[2025-01-30] MEDS: LAMICTAL 75 MG PO ×2 (07:51→19:44)
[2025-01-30] MEDS: PEPCID 20 MG PO (07:52)
[2025-01-30 08:24] LABS: Blood Urea Nitrogen 21 mg/dl (7-17); Calcium 9.1 mg/dl (8.4-10.2); Carbon Dioxide 21 mmol/L (22-30); Chloride 112 mmol/L (98-107); Estimated Creatinine Clearance 37 ml/min; Glucose 93 mg/dl (70-99); Potassium 4.1 mmol/L (3.5-5.1); Sodium 139 mmol/L (135-145); eGFR 35.57
[2025-01-30 09:18] LABS: TSH Reflex To Free T4 1.03 uIU/ml (0.47-4.68)
--- NOTE | 2025-01-30 12:29 | CM ---
CM reviewed chart, patient seen bedside with and provided from [facility] [employer] [facility]. Patient resides with and brother in a single story home, few steps to enter. Patient denies use of DME, VN/SNF history. Patient
confirms PCP Osiel Thomas, pharmacy [facility], confirms prescription coverage. Patient reports she is experiencing financial insecurities as she has been unable to work for four weeks, currently working with [employer] [facility] to assist.
Patient interested in resources from [email or web address], will provide to patient. CM will continue to follow for all discharge planning needs.
Plan; home with spouse when stable
--- NOTE | 2025-01-30 12:34 | W.PN.UPDATE ---
Update Note
Progress Note Update
Patient seen and examined at bedside. Nonbillable note
General: Other (Somewhat restless / hyperactive 64y F.)
HEENT: Other (Dry MM, neck supple.)
Respiratory: Clear; No Wheezes, Rales or Rhonchi
Cardiac: S1/S2 and Regular Rhythm; No Murmur
GI: Soft, Non Tender, Non Distended and Normal Bowel Sounds
Musculoskeletal: No Edema
Neuro: AO x 3 and Nonfocal/grossly intact
Intractable N/V/D
SANJUANA secondary to the above
Hypokalemia secondary to the above
Hypercalcemia secondary to the above
Non-Gapped Metabolic Acidosis secondary to the above
- SCr = 1.9 compared to prior baseline of 1.1.
- Supportive care / antiemetics / etc.
- Symptoms potentially due to Wegovy - though patient states her last dose was one month ago with no improvement in N/V.
- Given concurrent dizziness, check MRI
SANJUANA likely secondary to dehydration
Continue fluids
Monitor creatinine, 1.6 today
Check UA
Recent UTI
- Patient reports diagnosis of UTI > 1 week ago and indicates that she has been on abx since that time.
- No further dysuria or other symptoms.
- Would hold further abx for now as > 1 week is certainly sufficient course.
- ? if abx are clouding issue re: GI symptoms.
- Follow for any new / recurrent symptoms.
Benign Hypertension
- Hold hypertensive medications acutely.
Bipolar Disorder
- Somewhat restless / hyperactive in the ED.
- Continue psychotropic med regimen.
- Ordered some meds based on patient history and prior records in Med Summary. RN notified for med rec
- Need to confirm / clarify with pharmacy in the Am and adjust as needed.
- Monitor for any increase in agitation / anxiety / etc.
Hypothyroidism
- Ordered 25mcg T4 supplementation based on old records - adjust if needed. TSH wnl
Obesity due to excess calories
- Remain off of Wegovy or similar agents.
- Encourage healthy diet / increased activity with goal of weight loss.
DVT Prophylaxis: Lovenox
Code Status: Full
[2025-01-30 12:56] LABS: Urine Albumin 1+ (Neg - Trace); Urine Bilirubin Negative (Negative); Urine Character Slightly Cloudy (Clear); Urine Color Yellow; Urine Glucose Negative (Negative); Urine Ketone Negative (Negative); Urine Leukocyte 3+ (Negative); Urine Nitrite Negative (Negative); Urine Occult Blood 1+ (Negative); Urine Urobilinogen Negative (Neg - 1+)
[2025-01-30 13:39] LABS: Urine Amorphous Seen; Urine Squamous Cell 21-25 /LPF (Few); Urine Urothelial Cell >30 /LPF (FEW)
[2025-01-30 13:41] LABS: Urine White Cell 60-70 /HPF (0-5)
[2025-01-30 13:44] LABS: Urine Bacteria Few (Negative)
[2025-01-30] MEDS: TYLENOL 650 MG PO (15:39)
[2025-01-30] MEDS: LOVENOX 40 MG SC (17:56)
--- NOTE | 2025-01-30 18:31 | PTCARENOTE ---
Family member dropped off patient's home medications for completion of med rec. MD notified of med rec completion, medications walked down to be stored in pharmacy.
[2025-01-31] VITALS (9 sets, daily range): BP systolic 104–177; BP diastolic 59–71; PULSE 72–81; O2SAT 98; BMI 29.1
[2025-01-31] MEDS: NSS with KCL 20 MEQ 1000 IV ×2 (00:55→07:33)
--- NOTE | 2025-01-31 03:45 | PTCARENOTE ---
Pt removed telemetry stickers and is refusing to put them back on d/t itching and redness caused by the telemetry stickers. BRIDGE DESIGN ENGINEER Anastasia Barragan notified, order for 1x hydrocortisone cream placed and applied to pt's chest.
0600: Pt reports that itching has resolved and redness on her chest is improving. Pt is still refusing to have her telemetry stickers replaced, stating 'I'm sorry I just can't'. Will pass along to day shift RN.
[2025-01-31] MEDS: HYDROCORTISONE 1% CREAM 1 APPLIC TOPICAL (05:02)
[2025-01-31] MEDS: SYNTHROID 25 MCG PO (06:06)
[2025-01-31] MEDS: LAMICTAL 75 MG PO (07:58)
[2025-01-31] MEDS: PEPCID 20 MG PO (07:59)
[2025-01-31] MEDS: GEODON 60 MG PO (07:59)
[2025-01-31] MEDS: KLONOPIN 0.5 MG PO ×2 (07:59→19:48)
[2025-01-31 08:02] LABS: % Basophils 0.9 % (0-2); % Eosinophils 1.2 % (0-6); % Lymphocytes 40.5 % (20.5-51.1); % Monocytes 8.5 % (1.7-9.3); % Neutrophils 48.9 % (42.2-75.2); Absolute Eosinophils 0.1 10^3/uL (0-0.7); Absolute Lymphocytes 1.7 10^3/uL (1.2-3.4); Absolute Monocytes 0.4 10^3/uL (0.1-0.6); Absolute Neutrophils 2.1 10^3/uL (1.4-6.5); Hematocrit 31.9 % (37.0-47.0); Hemoglobin 10.7 g/dL (12.0-16.0); Mean Corp Hgb Conc. 33.5 g/dL (33.0-37.0); Mean Corpuscular Hgb 28.3 pg (27.0-31.0); Mean Corpuscular Volume 84.4 fL (81.0-99.0); Mean Platelet Volume 9.7 fL (7.4-10.4); Nucleated Red Blood Cells % 0 %; Platelet Count 280 10^3/uL (130-400); Red Blood Cell Count 3.78 10^6/uL (4.20-5.40); Red Cell Dist. Width 13.5 % (11.5-14.5); White Blood Cell Count 4.2 10^3/uL (4.8-10.8)
[2025-01-31 08:46] LABS: Blood Urea Nitrogen 11 mg/dl (7-17); Calcium 8.9 mg/dl (8.4-10.2); Carbon Dioxide 15 mmol/L (22-30); Chloride 120 mmol/L (98-107); Estimated Creatinine Clearance 54 ml/min; Glucose 81 mg/dl (70-99); Potassium 4.5 mmol/L (3.5-5.1); Sodium 141 mmol/L (135-145); eGFR 55.76
[2025-01-31] MEDS: LEXAPRO 20 MG PO (09:24)
[2025-01-31] MEDS: SODIUM BICARBONATE 1300 MG PO ×3 (09:24→21:38)
--- NOTE | 2025-01-31 10:56 | CM ---
CM reviewed chart, patient seen bedside with . CM discussed PT recommendations of VN, patient and agreeable, patient reports she has been weak from admitting back and forth to hospital, agreeable to referral to VN, TT to VN
liaison with referral. CM will continue to follow for all discharge planning needs.
Plan; home, referral to VN pending acceptance
[2025-01-31] MEDS: BENTYL PO (11:17)
--- NOTE | 2025-01-31 11:46 | VNURNOTE ---
Home Health Liaison met with patient and spouse at bedside to discuss [facility] nurse/therapy, visits, schedule and homebound status. Both are agreeable and understand that visits at home will be 2-3 x per week to assess and teach medical management.
Both are aware that [facility] will contact them for start of care in 1-2 days after discharge from .
[facility] referral completed in [facility].
[2025-01-31] MEDS: ATARAX 25 MG PO ×2 (11:49→21:40)
--- NOTE | 2025-01-31 12:39 | W.PN.HOSP.TC ---
Today's Communication/Plan
-
Monitor vital signs see plan
Sodium bicarb
Monitor renal function
Hopeful discharge tomorrow if tolerating diet
Assessment / Plan
Assessment / Plan
Intractable N/V/D
SANJUANA secondary to the above
Hypokalemia secondary to the above
Hypercalcemia secondary to the above
Non-Gapped Metabolic Acidosis secondary to the above
- SCr = 1.9 compared to prior baseline of 1.1.
- Supportive care / antiemetics / etc.
- Symptoms potentially due to Wegovy - though patient states her last dose was one month ago with no improvement in N/V.
- Given concurrent dizziness, MRI brain without acute intracranial abnormality
Sodium bicarb
SANJUANA likely secondary to dehydration
Continue fluids
Monitor creatinine, improving
Ucx with gram neg bacilli; monitor
Recent UTI
- Patient reports diagnosis of UTI > 1 week ago and indicates that she has been on abx since that time.
- No further dysuria or other symptoms.
- Would hold further abx for now as > 1 week is certainly sufficient course.
- ? if abx are clouding issue re: GI symptoms.
- Follow for any new / recurrent symptoms.
Benign Hypertension
- Hold hypertensive medications acutely.
Bipolar Disorder
- Somewhat restless / hyperactive in the ED.
- Continue psychotropic med regimen.
per patient lamictal is 50mg daily
Hypothyroidism
cw synthroid
Obesity due to excess calories
- Remain off of Wegovy or similar agents.
- Encourage healthy diet / increased activity with goal of weight loss.
DVT Prophylaxis: Lovenox
Code Status: Full
Anticipated Discharge: Within 24 hours
Subjective/Interval History
-
Date of Service: January 31, 2025
Denies pain
Objective Data
-
Labs:
Laboratory Results
01/31/25
07:46
WBC 4.2 L
Hgb 10.7 L
Hct 31.9 L
Plt Count 280
Sodium 141
Potassium 4.5
Chloride 120 H
Carbon Dioxide 15 L
BUN 11
Creatinine 1.1 H
Glucose 81
Calcium 8.9
Vital Signs:
Vital Signs
Temp Pulse Resp BP Pulse Ox
97.6 F 72 18 126/68 98
01/31/25 11:20 01/31/25 11:20 01/31/25 11:20 01/31/25 11:20 01/31/25 11:20
I&O
01/30/25 01/31/25 02/01/25
06:59 06:59 06:59
Intake Total 780 / 780 1979
Balance 780 / 780 1979
[2025-01-31] MEDS: BENTYL 20 MG PO ×3 (13:27→21:38)
[2025-01-31] MEDS: NON-FORMULARY ITEM 250 MG PO (13:27)
[2025-01-31] MEDS: LOVENOX 40 MG SC (17:15)
[2025-01-31] MEDS: MINIPRESS 1 MG PO (19:48)
[2025-02-01] VITALS (9 sets, daily range): BP systolic 91–143; BP diastolic 60–75; PULSE 64–97; BMI 29.2
[2025-02-01] MEDS: SYNTHROID 25 MCG PO (05:44)
[2025-02-01 08:46] LABS: Hematocrit 32.5 % (37.0-47.0); Hemoglobin 10.9 g/dL (12.0-16.0); Mean Corp Hgb Conc. 33.5 g/dL (33.0-37.0); Mean Corpuscular Hgb 28.6 pg (27.0-31.0); Mean Corpuscular Volume 85.3 fL (81.0-99.0); Mean Platelet Volume 10.2 fL (7.4-10.4); Platelet Count 295 10^3/uL (130-400); Red Blood Cell Count 3.81 10^6/uL (4.20-5.40); Red Cell Dist. Width 13.9 % (11.5-14.5); White Blood Cell Count 3.7 10^3/uL (4.8-10.8)
[2025-02-01 09:16] LABS: Blood Urea Nitrogen 8 mg/dl (7-17); Calcium 9.1 mg/dl (8.4-10.2); Carbon Dioxide 20 mmol/L (22-30); Chloride 115 mmol/L (98-107); Estimated Creatinine Clearance 60 ml/min; Glucose 81 mg/dl (70-99); Potassium 4.2 mmol/L (3.5-5.1); Sodium 140 mmol/L (135-145); eGFR > 60.00
[2025-02-01] MEDS: NON-FORMULARY ITEM 250 MG PO (09:24)
[2025-02-01] MEDS: BENTYL 20 MG PO ×4 (09:24→21:06)
[2025-02-01] MEDS: LAMICTAL 50 MG PO (09:25)
[2025-02-01] MEDS: KLONOPIN 0.5 MG PO ×2 (09:26→20:22)
[2025-02-01] MEDS: PEPCID 20 MG PO (09:26)
[2025-02-01] MEDS: LEXAPRO 20 MG PO (09:26)
[2025-02-01] MEDS: GEODON 60 MG PO (09:27)
[2025-02-01] MEDS: MINIPRESS 1 MG PO ×2 (09:27→20:22)
[2025-02-01 10:37] LABS: Absolute Neutrophils -Man Diff 1.2 10^3/uL (1.4-6.5); Band Neutrophils 0 % (0-3); Lymphocytes 60 % (20-51); Monocytes 7 % (2-9); Segmented Neutrophils 33 % (42-75)
[2025-02-01 10:38] LABS: Anisocytosis Slight; Normal RBC Morphology No; Platelets Checked YES
[2025-02-01 10:40] LABS: Target Cells FEW; Total Cells Counted 100
--- NOTE | 2025-02-01 12:01 | W.PN.HOSP.TC ---
Today's Communication/Plan
-
monitor vitals
see plan
Monitor orthostatics
If symptoms do not improve then will need GI evaluation
Add PPI
Gentle hydration
Assessment / Plan
Assessment / Plan
Intractable N/V/D
SANJUANA secondary to the above
Hypokalemia secondary to the above
Hypercalcemia secondary to the above
Non-Gapped Metabolic Acidosis secondary to the above
- SCr = 1.9 compared to prior baseline of 1.1.
- Supportive care / antiemetics / etc.
- Symptoms potentially due to Wegovy - though patient states her last dose was one month ago with no improvement in N/V.
- Given concurrent dizziness, MRI brain without acute intracranial abnormality
finished sodium bicarb
appears diarrhea is better
does feel like she gets nauseous and feel for vomiting when she eats. If symptoms do not improve then get GI evaluation
Add PPI
SANJUANA likely secondary to dehydration
Continue fluids
Monitor creatinine, improving
Ucx with gram neg bacilli; monitor
Recent UTI
- Patient reports diagnosis of UTI > 1 week ago and indicates that she has been on abx since that time.
- No further dysuria or other symptoms.
- Would hold further abx for now as > 1 week is certainly sufficient course.
- Follow for any new / recurrent symptoms.
urine cx with MDRO ecoli
Orthostatic hypotension
Gentle hydration
TEDS
monitor
Benign Hypertension
- Hold hypertensive medications acutely.
Bipolar Disorder
- Somewhat restless / hyperactive in the ED.
- Continue psychotropic med regimen.
per patient lamictal is 50mg daily
Hypothyroidism
cw synthroid
Obesity due to excess calories
- Remain off of Wegovy or similar agents.
- Encourage healthy diet / increased activity with goal of weight loss.
DVT Prophylaxis: Lovenox
Code Status: Full
General: Other (Somewhat restless / hyperactive 64y F.)
HEENT: Other (Dry MM, neck supple.)
Respiratory: Clear; No Wheezes, Rales or Rhonchi
Cardiac: S1/S2 and Regular Rhythm; No Murmur
GI: Soft, Non Tender, Non Distended and Normal Bowel Sounds
Musculoskeletal: No Edema
Neuro: AO x 3 and Nonfocal/grossly intact
I spent a total of 52 minutes with the patient or on the floor. More than 50% of this time involved counseling and coordination of care.
Anticipated Discharge: Within 24 hours
Subjective/Interval History
-
Date of Service: February 01, 2025
has some nausea
Objective Data
-
Labs:
Laboratory Results
02/01/25
07:25
WBC 3.7 L
Hgb 10.9 L
Hct 32.5 L
Plt Count 295
Sodium 140
Potassium 4.2
Chloride 115 H
Carbon Dioxide 20 L
BUN 8
Creatinine 1.0
Glucose 81
Calcium 9.1
Vital Signs:
Vital Signs
Temp Pulse Resp BP Pulse Ox
97.8 F 64 16 143/75 99
02/01/25 11:34 02/01/25 11:34 02/01/25 11:34 02/01/25 11:34 02/01/25 11:34
I&O
01/31/25 02/01/25 02/02/25
06:59 06:59 06:59
Intake Total 780 / 780 3060 / 3060
Balance 780 / 780 3060 / 3060
[2025-02-01] MEDS: NSS 1000 IV (12:27)
[2025-02-01] MEDS: PROTONIX 40 MG PO (12:27)
[2025-02-01] MEDS: ATARAX 25 MG PO (12:27)
[2025-02-01] MEDS: NEURONTIN 200 MG PO (14:54)
--- NOTE | 2025-02-01 15:00 | PTCARENOTE ---
1430 Pt c/o restless leg. I did ask pt if takes a med at home for it. Pt mention does not take a med, does sit in a warm bath at home with relief. DR. Bui notified and ordered one time dose of Neurontin 200 mg capsule. Explain to pt and given as
ordered, continue to monitor pt closely.
[2025-02-01] MEDS: LOVENOX 40 MG SC (17:41)
[2025-02-02 02:56] VITALS: BP 124/65
[2025-02-02] MEDS: SYNTHROID 25 MCG PO (06:23)
[2025-02-02 06:26] LABS: Hematocrit 31.2 % (37.0-47.0); Hemoglobin 10.6 g/dL (12.0-16.0); Mean Corpuscular Hgb 28.9 pg (27.0-31.0); Platelet Count 274 10^3/uL (130-400); Red Blood Cell Count 3.67 10^6/uL (4.20-5.40); Red Cell Dist. Width 13.8 % (11.5-14.5); White Blood Cell Count 3.8 10^3/uL (4.8-10.8)
[2025-02-02 07:00] LABS: Blood Urea Nitrogen 7 mg/dl (7-17); Calcium 8.8 mg/dl (8.4-10.2); Carbon Dioxide 21 mmol/L (22-30); Chloride 117 mmol/L (98-107); Estimated Creatinine Clearance 60 ml/min; Glucose 81 mg/dl (70-99); Potassium 3.9 mmol/L (3.5-5.1); Sodium 142 mmol/L (135-145); eGFR > 60.00
[2025-02-02 07:30] LABS: % Basophils 1.3 % (0-2); % Eosinophils 1.6 % (0-6); % Lymphocytes 56.9 % (20.5-51.1); % Monocytes 6.8 % (1.7-9.3); % Neutrophils 33.4 % (42.2-75.2); Absolute Basophils 0.1 10^3/uL (0-0.2); Absolute Eosinophils 0.1 10^3/uL (0-0.7); Absolute Lymphocytes 2.2 10^3/uL (1.2-3.4); Absolute Monocytes 0.3 10^3/uL (0.1-0.6); Absolute Neutrophils 1.3 10^3/uL (1.4-6.5); Nucleated Red Blood Cells % 0 %
[2025-02-02 08:40] VITALS: BP 121/60; BP 127/72; BP 134/74; PULSE 62; PULSE 65; PULSE 66
[2025-02-02] MEDS: LAMICTAL 50 MG PO (08:59)
[2025-02-02] MEDS: MINIPRESS 1 MG PO (09:00)
[2025-02-02] MEDS: LEXAPRO 20 MG PO (09:01)
[2025-02-02] MEDS: GEODON 60 MG PO (09:01)
[2025-02-02] MEDS: KLONOPIN 0.5 MG PO (09:02)
[2025-02-02] MEDS: PROTONIX 40 MG PO (09:02)
[2025-02-02] MEDS: BENTYL 20 MG PO (09:03)
[2025-02-02] MEDS: PEPCID 20 MG PO (09:03)
[2025-02-02] MEDS: NON-FORMULARY ITEM 250 MG PO (09:05)
--- NOTE | 2025-02-02 10:30 | W.PN.HOSP.TC ---
Today's Communication/Plan
-
Monitor vital signs see plan
Now feeling better
Continue with PPI
Discharge today
Orthostatics resolved
Time of discharge 37 minutes
Assessment / Plan
Assessment / Plan
Intractable N/V/D
SANJUANA secondary to the above
Hypokalemia secondary to the above
Hypercalcemia secondary to the above
Non-Gapped Metabolic Acidosis secondary to the above
- SCr = 1.9 compared to prior baseline of 1.1.
- Supportive care / antiemetics / etc.
- Symptoms potentially due to Wegovy - though patient states her last dose was one month ago with no improvement in N/V.
- Given concurrent dizziness, MRI brain without acute intracranial abnormality
finished sodium bicarb
appears diarrhea is better
does feel like she gets nauseous and feel for vomiting when she eats. If symptoms do not improve then get GI evaluation. sx improving after protonix. advised her to f/u with GI outpatient. she already was supposed to see GI outpatient
Add PPI
SANJUANA likely secondary to dehydration
dc furhter fluids
Monitor creatinine, improving
Recent UTI
- Patient reports diagnosis of UTI > 1 week ago and indicates that she has been on abx since that time.
- No further dysuria or other symptoms.
- Would hold further abx for now as > 1 week is certainly sufficient course.
- Follow for any new / recurrent symptoms.
urine cx with MDRO ecoli
Orthostatic hypotension
Gentle hydration; orthos now neg
TEDS
monitor
Benign Hypertension
- Hold hypertensive medications acutely.
Bipolar Disorder
- Somewhat restless / hyperactive in the ED.
- Continue psychotropic med regimen.
per patient lamictal is 50mg daily
Hypothyroidism
cw synthroid
Obesity due to excess calories
- Remain off of Wegovy or similar agents.
- Encourage healthy diet / increased activity with goal of weight loss.
DVT Prophylaxis: Lovenox
Code Status: Full
General: Other (Somewhat restless / hyperactive 64y F.)
HEENT: Other (Dry MM, neck supple.)
Respiratory: Clear; No Wheezes, Rales or Rhonchi
Cardiac: S1/S2 and Regular Rhythm; No Murmur
GI: Soft, Non Tender, Non Distended and Normal Bowel Sounds
Musculoskeletal: No Edema
Neuro: AO x 3 and Nonfocal/grossly intact
Anticipated Discharge: Today
Subjective/Interval History
-
Date of Service: February 02, 2025
denies pain
Objective Data
-
Labs:
Laboratory Results
02/02/25
06:00
WBC 3.8 L
Hgb 10.6 L
Hct 31.2 L
Plt Count 274
Sodium 142
Potassium 3.9
Chloride 117 H
Carbon Dioxide 21 L
BUN 7
Creatinine 1.0
Glucose 81
Calcium 8.8
Vital Signs:
Vital Signs
Temp Pulse Resp BP Pulse Ox
98.1 F 65 17 134/74 98
02/02/25 08:40 02/02/25 09:00 02/02/25 08:40 02/02/25 09:00 02/02/25 08:40
I&O
02/01/25 02/02/25 02/03/25
06:59 06:59 06:59
Intake Total 3060 / 3060 740 / 740
Balance 3060 / 3060 740 / 740
--- NOTE | 2025-02-02 10:32 | W.DCSUMMARY ---
Discharge Summary
Discharge Data
Date of Admission: 01/30/25
Date of Discharge: 02/02/25
-
Pending Results: No
Hospital Course
64-year-old female with past medical history of irritable bowel disease, UTI, hypertension, bipolar disease, hypothyroidism, obesity came to the hospital with intractable nausea vomiting and diarrhea. Patient symptoms were likely thought was
secondary to likely will be along with possible viral gastroenteritis. Patient's symptoms continue to improve over time and she was able to tolerate regular diet. She also had acute kidney injury secondary to dehydration which over time continue
to improve with fluids. she had recent urinary tract infection and was treated. Her urine culture was also drawn here however patient was not symptomatic. She was also orthostatic which continue to improve over time with hydration. Some of her
symptoms were also thought was secondary to possible gastric etiology including GERD, gastritis. Her symptoms improving with famotidine and Protonix. She was instructed to follow-up with GI outpatient. Since patient symptoms continue to improve
and she was feeling better she was then discharged home with instructions to follow-up with all her physicians outpatient.
Discharge Plan
-
Patient Disposition: Home (Routine Discharge)
Discharge Diagnosis/Procedures: Intractable nausea vomiting and diarrhea
Acute kidney injury
Hypokalemia
Hypercalcemia
[place]ong[place] metabolic acidosis
Dehydration
Orthostatic hypotension
Diet: As tolerated
Activity: As tolerated
Driving Restrictions: As prior to admission
Bathing Restrictions: None
Activity Restrictions/Additional Instructions:
Please follow-up with your chocolate dipper soon outpatient
Referrals:
Osiel Thomas MD [Family Provider, [facility]] - in less than 1 week
Prescriptions:
New
famotidine 20 mg Tablet
20 mg PO DAILY Qty: 30 0RF
pantoprazole 40 mg Tablet,Delayed Release (Dr/Ec)
40 mg PO DAILY Qty: 30 0RF
Continued
(DME) Space Chamber Spacer
See Rx Instructions .Route Qty: 1 0RF
Rx Instructions:
As directed
prazosin 1 mg Capsule
1 mg PO BID
ondansetron HCl 8 mg Tablet
8 mg PO Q8H PRN (Reason: nausea)
phenazopyridine 200 mg Tablet
200 mg PO TID PRN (Reason: dysuria)
clonazepam 0.5 mg Tablet
0.5 mg PO BID
melatonin 3 mg Tablet
3 mg PO HS PRN (Reason: difficulty sleeping)
levothyroxine 25 mcg Tablet
25 mcg PO DAILY
lamotrigine 25 mg Tablet
50 mg PO DAILY
terbinafine HCl 250 mg Tablet
250 mg PO DAILY
ziprasidone HCl 20 mg Capsule
20 mg PO DAILY
dicyclomine 20 mg Tablet
20 mg PO QID
ziprasidone HCl 40 mg Capsule
40 mg PO DAILY
nystatin 100,000 unit/gram Powder
1 applic TOPICAL BID
hydroxyzine pamoate 25 mg Capsule
25 mg PO QID PRN (Reason: anxiety, hives, nausea)
escitalopram oxalate 20 mg Tablet
20 mg PO DAILY
nitrofurantoin monohyd/m-cryst 100 mg Capsule
100 mg PO BID
albuterol sulfate 90 mcg/actuation HFA aerosol inhaler
2 puff INHALATION Q4HPRN PRN (Reason: shortness of breath)
Held
hydrochlorothiazide 25 mg Tablet
25 mg PO DAILY
Hold Instructions: Restart when blood pressure is greater than 140/90
Discharge Orders:
Discharge Patient (As Directed); Ordered 02/02/25
Ordered By: Kei Bui
Discharge Date and Time
Print Language: WOLOF
[2025-02-02 11:21] VITALS: BP 133/75
--- NOTE | 2025-02-02 12:30 | CM ---
Chart reviewed and plan is to home with [facility]
Plan; Home with [facility], brother to transport
== END 2025-02-02 14:01 | disposition home health service (06) | DRG 683 ==
LOC: 4 WEST ACU 02:45
PROVIDERS: ADMITTING PHYSICIAN Hospitalist; ATTENDING PHYSICIAN Internal Medicine; EMERGENCY PHYSICIAN Emergency Medicine; FAMILY PHYSICIAN Family Medicine
DX: N17.9 Acute kidney failure, unspecified (principal); E87.20 Acidosis, unspecified; N39.0 Urinary tract infection, site not specified; E87.6 Hypokalemia; E83.52 Hypercalcemia; I10 Essential (primary) hypertension; F31.9 Bipolar disorder, unspecified; E03.9 Hypothyroidism, unspecified; E66.09 Other obesity due to excess calories; Z68.29 Body mass index [BMI] 29.0-29.9, adult; I95.1 Orthostatic hypotension; Z79.899 Other long term (current) drug therapy
CPT/HCPCS: 70551; 74176; 80048; 80053; 81003; 81015; 83690; 83735; 84443; 85025; 85027; 87077; 87086; 87186; 93005; 96374; 97116; 97162; 99285

== ENCOUNTER 2025-05-06 14:30 | Emergency (ER) | payer BC, SELFPAY ==
[2025-05-06 14:45] VITALS: BP 162/76
--- NOTE | 2025-05-06 16:22 | ED.SKININJ ---
HPI-Injury
General
Chief Complaint: Skin Problem
Source: patient
Exam Limitations: none
Time Seen by Provider: 05/06/25 16:07
Nursing documentation reviewed up to this point in time: agreed with
History of Present Illness-Injury
Is this injury a work related problem?: No
Is pt an associate of [facility]?: No
Initial Injury comments:
Patient to ED with complaitn of itchy rash to back and arms. States she applied Gold Aldana lotion for dry skin 2 weeks ago, rash started the following day. SHe also reports cutting her clonazepam, lamictal, and escitalpram doses in half at about
the same time. SHe states she wants to wean self off of these meds. She was seen by PCP last week and placed on medrol dose pack without improvement. Brought self to ED today for eval of this rash. Denies fever/chills, recent illness. No SOB,
CP/pressure, cough. No prior history of same.
Past History
Past History
ED Past Medical History: Asthma, HTN, Psychiatric (Anxiety, Depression, ), Other (Back pain, Uterine fibroid) and Other
ED Past Surgical History: Gynecological (Cyst removed from labia) and Other (Hemorrhoidectomy, )
Social History
Tobacco: Non-smoker
Alcohol: None
Drug: None
Personal:
Living: with family
Employment: Employed
Family History
Family History: Hypertension
Review of Systems
Review of Systems
Allergies reviewed?: Yes
All Other Systems: ROS reviewed and negative except as documented in HPI and ROS
Constitutional: Reports no symptoms
EENT: Reports no symptoms
Respiratory: Reports no symptoms
Cardiac: Reports no symptoms
ABD/GI: Reports no symptoms
: Reports no symptoms
Musculoskeletal: Reports no symptoms
Skin: Reports itching (red scattered vesicular rash on back and ams. No evidence of tunneling)
Neurological: Reports no symptoms
Psychiatric: Reports no symptoms
Phy Exam
General Physical Exam
General Presentation: well appearing and mild distress
General age: appears stated age
General Skin: warm and dry
General Habitus: normal
General Mental: alert
Pulmonary Exam
Pulmonary Exam: lungs clear and no respiratory distress
Musculoskeletal Exam
Musculoskeletal Exam: full ROM and neuro vasc intact
Skin Exam
Skin Exam: normal color, warm/dry and other (red vesicular rash. Vesicals are scattered. No discharge. No surrounding erythema.)
Psychiatric Exam
Psychiatric Exam: normal mood/affect
Course
Orders/Labs/Results
Orders:
Orders
05/06/25 15:04
EKG [Electrocardiogram (*1)] Urgent
Reason for Study: Shortness of Breath
05/06/25 15:05
EKG- Treatment ONCE
05/06/25 16:18
Dexamethasone Pf [Decadron] 10 mg PO NOW STA
Vital Signs
Initial and Last Documented VS:
Initial Vital Signs
Temp Pulse Resp Pulse Ox
98.9 F 69 19 100
05/06/25 14:42 05/06/25 14:42 05/06/25 14:42 05/06/25 14:42
Last Documented Vital Signs
Temp Pulse Resp BP Pulse Ox
98.9 F 69 16 162/76 100
05/06/25 14:42 05/06/25 14:42 05/06/25 17:03 05/06/25 14:45 05/06/25 16:22
*Pulse Oximetry
SaO2: 100
Patient hypoxic: no
*Critical Care Note
Total Time (30-74mins, 75-104mins- exclusive of procedures): Not Applicable
Update Note
Update Note:
Patient to ED with complaint of rash to her back and arms x 2 weeks. Scattered vesicular rash noted. No evidence of infection. WIll place on prednisone taper. SHe will continue benadryl prn for itching and follow up wiht PCP. Given instrucitons
on s/s to return to ED and she is agreeable to plan
ED Attending Note
-
Portions of this chart may have been created with voice recognition software.� Occasional wrong word or��sound alike� substitutions may have occurred due to the inherent limitations of voice recognition software.
Discharge Plan
Departure
Patient Disposition: Home (Routine Discharge)
Date of Disposition: 05/06/25
Time of Disposition: 16:19
Patient with high blood pressure during this ER visit?: No
Condition: Good
Covid-19: Not Applicable
Discharge Problem:
Skin rash
Instructions: Skin Rash (DC)
Prescriptions:
New
prednisone 10 mg Tablet
See Rx Instructions .ROUTE .COMPLEX Qty: 30 0RF
Rx Instructions:
Take By Mouth:
40 mg daily x3 days, 30 mg daily x3 days,
20 mg daily x3 days, 10 mg daily x3 days.
No Action
(DME) Space Chamber Spacer
See Rx Instructions .Route Qty: 1 0RF
Rx Instructions:
As directed
prazosin 1 mg Capsule
1 mg PO BID
ondansetron HCl 8 mg Tablet
8 mg PO Q8H PRN (Reason: nausea)
phenazopyridine 200 mg Tablet
200 mg PO TID PRN (Reason: dysuria)
clonazepam 0.5 mg Tablet
0.5 mg PO BID
melatonin 3 mg Tablet
3 mg PO HS PRN (Reason: difficulty sleeping)
levothyroxine 25 mcg Tablet
25 mcg PO DAILY
lamotrigine 25 mg Tablet
50 mg PO DAILY
terbinafine HCl 250 mg Tablet
250 mg PO DAILY
ziprasidone HCl 20 mg Capsule
20 mg PO DAILY
dicyclomine 20 mg Tablet
20 mg PO QID
hydrochlorothiazide 25 mg Tablet
25 mg PO DAILY
ziprasidone HCl 40 mg Capsule
40 mg PO DAILY
nystatin 100,000 unit/gram Powder
1 applic TOPICAL BID
hydroxyzine pamoate 25 mg Capsule
25 mg PO QID PRN (Reason: anxiety, hives, nausea)
escitalopram oxalate 20 mg Tablet
20 mg PO DAILY
nitrofurantoin monohyd/m-cryst 100 mg Capsule
100 mg PO BID
albuterol sulfate 90 mcg/actuation HFA aerosol inhaler
2 puff INHALATION Q4HPRN PRN (Reason: shortness of breath)
famotidine 20 mg Tablet
20 mg PO DAILY Qty: 30 0RF
pantoprazole 40 mg Tablet,Delayed Release (Dr/Ec)
40 mg PO DAILY Qty: 30 0RF
Referrals:
Osiel Thomas MD [Family Provider, Family Practice] - Follow up in 2-3 days
Interventions
Interventions:
*Risk Screen - Suicide Last Done: 05/06/25 14:45
*General Assessment Last Done: 05/06/25 17:03
*Neglect/Abuse Screening Last Done: 05/06/25 14:45
*ED- Fall Risk Assessment Last Done: 05/06/25 17:03
*ED COVID-19 Vaccine History Last Done: 05/06/25 17:03
*Nursing Disposition Last Done: 05/06/25 17:03
ED-Skin Assessment Last Done: 05/06/25 17:03
Discharge Date and Time
Discharge Date/Time: 05/06/25 17:05
Print Language: PORTUGUESE
[2025-05-06] MEDS: DECADRON 10 MG PO (16:44)
== END 2025-05-06 17:05 | disposition home or self-care (01) ==
LOC: EMR 14:30
PROVIDERS: EMERGENCY PHYSICIAN Emergency Medicine; FAMILY PHYSICIAN Family Medicine
DX: R21 Rash and other nonspecific skin eruption (principal); I10 Essential (primary) hypertension; J45.909 Unspecified asthma, uncomplicated
CPT/HCPCS: 99283; 93005

== ENCOUNTER 2025-05-14 06:19 | Day surgery (SDC) | payer BC, SELFPAY | END 2025-05-14 13:22 | disposition home or self-care (01) | LOC: GI 06:19 | PROVIDERS: ATTENDING PHYSICIAN Internal Medicine | DX: Z12.11 Encounter for screening for malignant neoplasm of colon (principal); K62.89 Other specified diseases of anus and rectum; K57.30 Diverticulosis of large intestine without perforation or abscess without bleeding; K63.5 Polyp of colon; K62.1 Rectal polyp; Z86.0101 Personal history of adenomatous and serrated colon polyps | CPT/HCPCS: 45380; 88305 ==

== ENCOUNTER 2025-05-27 14:47 | Emergency (ER) | payer BC, SELFPAY ==
[2025-05-27 14:50] VITALS: BP 151/77
[2025-05-27 15:14] VITALS: BP 132/76
--- NOTE | 2025-05-27 15:24 | ED.GENMED ---
History of Present Illness
General
Chief Complaint: Anxiety
Source: patient
Time Seen by Provider: 05/27/25 15:14
History of Present Illness
History of Present Illness:
65-year-old female with past medical history of hypertension, asthma, anxiety and depression presenting to the ER for evaluation of feeling stressed, anxious and short of breath noting that over the last few weeks she has been dealing with trying to
wean off 3 separate psychiatric medications (Lexapro, Lamictal and clonazepam), going on Medicare after she recently retired and having her insurance change, recently diagnosed with dementia as well as currently hospitalized in the ICU at
this hospital after he had a acute OH 2 days ago and is scheduled to undergo open heart surgery tomorrow, currently taking over there state of affairs at home and having to learn how to do all of this as she was previously not managing the family
finances. Patient states she has been feeling very overwhelmed and believes the combination of all of these things caused her to experience the symptoms today, was leaving the hospital but decided to come to the ER for further evaluation. Patient
denies any fevers or recent illness, chest pain, palpitations, diaphoresis, exertional dyspnea orthopnea. Denies any SI, HI, alcohol or substance use.
Past History
Past History
ED Past Medical History: Asthma, HTN, Psychiatric (Anxiety, Depression, ), Other (Back pain, Uterine fibroid) and Other
ED Past Surgical History: Gynecological (Cyst removed from labia) and Other (Hemorrhoidectomy, )
Social History
Tobacco: Non-smoker
Alcohol: None
Drug: None
Personal:
Living: with family
Employment: Employed
Family History
Family History: Hypertension
Review of Systems
Review of Systems
All Other Systems: ROS reviewed and negative except as documented in HPI and ROS
Phy Exam
Physical Exam
Physical Exam:
GENERAL: Alert , in no apparent distress
HEAD: Normocephalic atraumatic
EYE: conjunctiva clear
NECK: Supple, no significant adenopathy.
ENT: o/p clr, mmm.
CARDIAC: Regular rate and rhythm
LUNGS: Clear breath sounds bilaterally, no acute respiratory distress, no wheezes/rales/rhonchi
NEUROLOGICAL: Alert and oriented
SKIN: Warm and dry, skin intact.
MUSCULOSKELETAL: well perfused.
PSYCH: Normal and appropriate interaction.
Scores
Heart Failure Risk
Heart Failure Risk Score: Not Applicable
Heart Score for Chest Pain Patients
STEMI patient?: Not applicable
Withdrawal Assessment of Alcohol
Withdrawal Assessment Completed?: Not applicable
Course
Orders/Labs/Results
Orders:
Orders
05/27/25 14:51
EKG [Electrocardiogram (*1)] Urgent
Reason for Study: Palpitations
05/27/25 14:52
EKG- Treatment ONCE
05/27/25 15:25
Clonazepam [Klonopin] 0.5 mg PO NOW STA
05/27/25 15:38
Basic Metabolic Panel Urgent
Complete Blood Count/With Diff Urgent
Troponin I Urgent
Abnormal Lab Results
05/27/25
15:38
Abs Immat Gran (auto) 0.1 H 10^3/uL
(0-0.05)
Immature Gran % 1.1 H %
(0-0.5)
Sodium 134 L mmol/L
(135-145)
BUN 20 H mg/dl
(7-17)
Creatinine 1.5 H mg/dL
(0.6-1.0)
Glucose 102 H mg/dl
(70-99)
05/27/25 15:38
05/27/25 15:38
Vital Signs
Initial and Last Documented VS:
Initial Vital Signs
Temp Pulse Resp BP Pulse Ox
98.7 F 70 17 151/77 100
05/27/25 14:50 05/27/25 14:50 05/27/25 14:50 05/27/25 14:50 05/27/25 14:50
Last Documented Vital Signs
Temp Pulse Resp BP Pulse Ox
98.7 F 70 17 132/76 99
05/27/25 14:50 05/27/25 14:50 05/27/25 14:50 05/27/25 15:14 05/27/25 16:15
MDM/Problems Addressed
Differential Diagnosis Includes:
Anxiety/panic attack
Adjustment disorder with
Less concern for an acute cardiac issue such as ACS/NSTEMI/cardiomyopathy (Takotsubo)
Thyroid disorder
Electrolyte imbalance
MDM/Problems Addressed:
65-year-old female presenting to the ER for evaluation of increased anxiety and stress over the last few weeks, today felt the symptoms were worse noting to me at time of my exam she feels short of breath. Blood pressure at time of my exam is
130/70, no acute respiratory distress, speaking full sentences. Patient has multiple reasons for feeling anxious/panic including multiple social factors with being currently hospitalized and scheduled to undergo major cardiac surgery
tomorrow. EKG in triage is nonischemic, no ectopy. Will check labs including a troponin as well as chest x-ray although my suspicion for any emergent pathology is very low.
*Pulse Oximetry
SaO2: 100
Oxygen Mode of Delivery: Room air
Patient hypoxic: no
*EKG
Heart Rate: 61
Rate: normal
Rhythm: sinus
[place]: normal axis
Ischemia: no ischemia
*Felt Hat Flanging Operator Interpretation
Rate: normal
Heart Rate: 65
Rhythm: sinus
*Critical Care Note
Total Time (30-74mins, 75-104mins- exclusive of procedures): Not Applicable
Patient Management
Escalation/DeEscalation of care consider admission/obs:
Following examination patient ultimately wished to be discharged home. She does report feeling a little bit better after receiving her normal dose of Klonopin. Patient advised to follow-up with primary care provider. Aware of return precautions
to the ER.
ED Attending Note
-
Portions of this chart may have been created with voice recognition software.� Occasional wrong word or��sound alike� substitutions may have occurred due to the inherent limitations of voice recognition software.
Discharge Plan
Departure
Patient Disposition: Home (Routine Discharge)
Date of Disposition: 05/27/25
Time of Disposition: 16:17
Patient with high blood pressure during this ER visit?: Yes
Discharge Problem:
Anxiety
Instructions: Anxiety, Adult (DC)
Prescriptions:
No Action
(DME) Space Chamber Spacer
See Rx Instructions .Route Qty: 1 0RF
Rx Instructions:
As directed
prazosin 1 mg Capsule
1 mg PO BID
ondansetron HCl 8 mg Tablet
8 mg PO Q8H PRN (Reason: nausea)
phenazopyridine 200 mg Tablet
200 mg PO TID PRN (Reason: dysuria)
clonazepam 0.5 mg Tablet
0.5 mg PO BID
melatonin 3 mg Tablet
3 mg PO HS PRN (Reason: difficulty sleeping)
levothyroxine 25 mcg Tablet
25 mcg PO DAILY
lamotrigine 25 mg Tablet
50 mg PO DAILY
terbinafine HCl 250 mg Tablet
250 mg PO DAILY
ziprasidone HCl 20 mg Capsule
20 mg PO DAILY
dicyclomine 20 mg Tablet
20 mg PO QID
hydrochlorothiazide 25 mg Tablet
25 mg PO DAILY
ziprasidone HCl 40 mg Capsule
40 mg PO DAILY
nystatin 100,000 unit/gram Powder
1 applic TOPICAL BID
hydroxyzine pamoate 25 mg Capsule
25 mg PO QID PRN (Reason: anxiety, hives, nausea)
escitalopram oxalate 20 mg Tablet
20 mg PO DAILY
nitrofurantoin monohyd/m-cryst 100 mg Capsule
100 mg PO BID
albuterol sulfate 90 mcg/actuation HFA aerosol inhaler
2 puff INHALATION Q4HPRN PRN (Reason: shortness of breath)
famotidine 20 mg Tablet
20 mg PO DAILY Qty: 30 0RF
pantoprazole 40 mg Tablet,Delayed Release (Dr/Ec)
40 mg PO DAILY Qty: 30 0RF
prednisone 10 mg Tablet
See Rx Instructions .ROUTE .COMPLEX Qty: 30 0RF
Rx Instructions:
Take By Mouth:
40 mg daily x3 days, 30 mg daily x3 days,
20 mg daily x3 days, 10 mg daily x3 days.
Referrals:
Harris Burns MD [Family Provider, Family Practice]
Interventions
Interventions:
*Risk Screen - Suicide Last Done: 05/27/25 14:51
*General Assessment Last Done: 05/27/25 14:51
*Neglect/Abuse Screening Last Done: 05/27/25 14:51
*ED- Fall Risk Assessment Last Done: 05/27/25 15:09
*ED COVID-19 Vaccine History Last Done: 05/27/25 14:51
*ED Influenza Vaccine History Last Done: 05/27/25 14:51
*Nursing Disposition Last Done: 05/27/25 16:27
ED-Psychological Assessment Last Done: 05/27/25 15:10
Discharge Date and Time
Discharge Date/Time: 05/27/25 16:28
Print Language: CYPRIOT
[2025-05-27] MEDS: KLONOPIN 0.5 MG PO (15:34)
[2025-05-27 15:55] LABS: Hematocrit 37.9 % (37.0-47.0); Hemoglobin 13.0 g/dL (12.0-16.0); Mean Corp Hgb Conc. 34.3 g/dL (33.0-37.0); Mean Corpuscular Volume 88.1 fL (81.0-99.0); Nucleated Red Blood Cells % 0 %; Platelet Count 209 10^3/uL (130-400); Red Cell Dist. Width 13.1 % (11.5-14.5)
[2025-05-27 16:04] LABS: Blood Urea Nitrogen 20 mg/dl (7-17); Calcium 9.8 mg/dl (8.4-10.2); Carbon Dioxide 26 mmol/L (22-30); Chloride 104 mmol/L (98-107); Glucose 102 mg/dl (70-99); Potassium 3.8 mmol/L (3.5-5.1); Sodium 134 mmol/L (135-145); eGFR 38.20
[2025-05-27 16:15] LABS: Troponin I < 0.012 ng/ml
== END 2025-05-27 16:28 | disposition home or self-care (01) ==
LOC: EMR 14:47
PROVIDERS: Physician Assistant Medical; EMERGENCY PHYSICIAN Emergency Medicine; FAMILY PHYSICIAN Family Medicine
DX: F41.9 Anxiety disorder, unspecified (principal); I10 Essential (primary) hypertension; J45.909 Unspecified asthma, uncomplicated; F32.A Depression, unspecified; Z63.79 Other stressful life events affecting family and household; Z82.49 Family history of ischemic heart disease and other diseases of the circulatory system
CPT/HCPCS: 99284; 80048; 84484; 85025; 93005

== ENCOUNTER 2025-08-08 10:53 | Emergency (ER) | payer MEDICARE, SELFPAY ==
[2025-08-08 11:14] VITALS: BP 160/77
[2025-08-08] MEDS: BENADRYL 25 MG IV (14:07)
[2025-08-08 14:12] LABS: Hematocrit 37.2 % (37.0-47.0); Hemoglobin 13.0 g/dL (12.0-16.0); Mean Corp Hgb Conc. 34.9 g/dL (33.0-37.0); Mean Corpuscular Volume 84.5 fL (81.0-99.0); Nucleated Red Blood Cells % 0 %; Platelet Count 214 10^3/uL (130-400); Red Cell Dist. Width 13.2 % (11.5-14.5)
[2025-08-08 14:19] LABS: ALT (SGPT) 17 U/L (0-35); AST (SGOT) 26 U/L (14-36); Albumin 4.3 g/dl (3.5-5.0); Alkaline Phosphatase 80 U/L (38-126); Blood Urea Nitrogen 23 mg/dl (7-17); Calcium 9.5 mg/dl (8.4-10.2); Carbon Dioxide 24 mmol/L (22-30); Chloride 100 mmol/L (98-107); Glucose 121 mg/dl (70-99); Potassium 3.4 mmol/L (3.5-5.1); Sodium 131 mmol/L (135-145); Total Protein 6.7 g/dl (6.3-8.2); eGFR > 60.00
--- NOTE | 2025-08-08 17:23 | ED.GENMED ---
History of Present Illness
General
Chief Complaint: Allergic Reaction
Time Seen by Provider: 08/08/25 13:31
History of Present Illness
History of Present Illness:
se mdm
Past History
Past History
ED Past Medical History: Asthma, HTN, Psychiatric (Anxiety, Depression, ), Other (Back pain, Uterine fibroid) and Other
ED Past Surgical History: Gynecological (Cyst removed from labia) and Other (Hemorrhoidectomy, )
Social History
Tobacco: Non-smoker
Alcohol: None
Drug: None
Personal:
Living: with family
Employment: Employed
Family History
Family History: Hypertension
Phy Exam
Physical Exam
Physical Exam:
seeMDM
Course
Orders/Labs/Results
Orders:
Orders
08/08/25 14:00
Diphenhydramine [Benadryl] 25 mg IV NOW STA
08/08/25 14:03
Complete Blood Count/With Diff Urgent
Comprehensive Metabolic Panel Urgent
Lamotrigine (Lamictal) [S] Urgent
Abnormal Lab Results
08/08/25
14:03
Sodium 131 L mmol/L
(135-145)
Potassium 3.4 L mmol/L
(3.5-5.1)
BUN 23 H mg/dl
(7-17)
Glucose 121 H mg/dl
(70-99)
08/08/25 14:03
08/08/25 14:03
Vital Signs
Initial and Last Documented VS:
Initial Vital Signs
Temp Pulse Resp BP Pulse Ox
36.9 C 76 16 160/77 98
08/08/25 11:14 08/08/25 11:14 08/08/25 11:14 08/08/25 11:14 08/08/25 11:14
Last Documented Vital Signs
Temp Pulse Resp BP Pulse Ox
36.9 C 76 16 160/77 98
08/08/25 11:14 08/08/25 11:14 08/08/25 11:14 08/08/25 11:14 08/08/25 11:14
MDM/Problems Addressed
MDM/Problems Addressed:
Note:
CHIEF COMPLAINT(S)
Severe itching and rash over the body.
HISTORY OF PRESENT ILLNESS
The patient is a 65-year-old female with a history of a persistent rash accompanied by severe itching, describing it as 'itching like crazy all over my body.' She initially noticed a rash on her forearms which she managed with topical clobetasol.
The symptoms returned a few days ago, now affecting her hands, neck, and ears, spreading towards her face. The patient has previously used clobetasol with minimal relief and mentions that [id number]-ocf-zevmege hydrocortisone worsens the condition. The
patient has a history of a biopsy taken over a month ago by her muffler tender, with preliminary contact dermatitis remarks, yet lacks formal results. Notably, the patient reports previous episodes of this rash but does not specify the timeline.
Symptomatic relief occurs upon scratching until exudate release. The patient denies fever, potential sexually transmitted infections, or sexually active status for years.
PAST MEDICAL AND SURGICAL HISTORY
Latex allergy. Bipolar disorder treated with psychotropic medications.
MEDICATIONS
- Clonazepam
- Seroquel (quetiapine) 60 mg
- Lexapro (escitalopram) recently restarted
- Lamictal (lamotrigine) recently restarted
SOCIAL HISTORY
The patient reports using [employer] for transportation due to a broken down vehicle.
REVIEW OF SYSTEMS
- Dermatologic: Rash and severe itching on arms, hands, neck, ears, and face.
- Musculoskeletal: Denies fever or new joint pain.
- Neurological: Denies headaches or new cognitive changes.
PHYSICAL EXAM
GENERAL: Alert , in no apparent distress
EYE: pupils equal and reactive
NECK: Supple
ENT: o/p clr, mmm. No mucous membrane involvement, no lesions in her mouth
CARDIAC: Regular rate and rhythm .
LUNGS: Clear breath sounds bilaterally, no acute respiratory distress, no wheezes/rales/rhonchi
ABDOMEN: Soft, without focal tenderness, no r/g, no cvat, normal bowel sounds
NEUROLOGICAL: Alert and oriented, no focal neuro deficits
SKIN: Warm and dry, papular rash to her chest, arms, back, few on face that look more like urticaria, there are some blisters/fluid-filled papules on her soles of her feet, and her palms,
MUSCULOSKELETAL: No edema, well perfused. neg fabby's sign
PSYCH: Normal and appropriate interaction.
Nursing notes reviewed and vital signs reviewed.
PROBLEM LIST
Acute:
1. Rash with severe pruritus.
Chronic:
1. Bipolar disorder
PLAN
1. Begin oral corticosteroid regimen as follows: prednisone 50 mg daily for three days, then 40 mg daily for three days, and 30 mg daily for three days.
2. Obtain laboratory tests to evaluate for possible lamotrigine toxicity.
3. Administer a dose of diphenhydramine for symptomatic relief of itching.
4. Follow up with a muffler tender is strongly advised due to potential for rebound rash post-steroid use.
DIFFERENTIAL DIAGNOSIS
The Differential Diagnosis includes, in no particular order and is not limited to:
1. Contact dermatitis
2. Eczema
3. Lamotrigine-induced rash
4. Psoriasis
5. Allergic dermatitis
6. Bullous pemphigoid
7. Stasis dermatitis
8. Seborrheic dermatitis
9. Scabies
10. Drug-related eruption
CARE-UPDATE
65-year-old female whose had issues with contact dermatitis in the past treated with topical steroids, underlying bipolar disorder, restarted Lamictal recently
She recently restarted with this rash about a month ago and saw dermatology, had a biopsy confirming that it is contact dermatitis. She is not really sure what it is related to, she has tried changing her soaps etc. She did restart the Lamictal
that she was on previously at her previous dose. She has not had any GI symptoms, confusion, fevers or chills. She is not sexually active and is not concerned about exposure to syphilis. She has not had a fever. She is quite itchy and says that
Benadryl interacts with her medications so she tries not to take it. Just given the fact that she recently started Lamictal again I did send a Lamictal level, I doubt that she has dress syndrome, will check screening labs
10/09/24 - 15:16
Prescribed oral steroids with a tapering schedule starting immediately: 50 mg daily (five 10 mg tablets) for three days (Monday, Monday, Monday), 40 mg daily for the next three days (Monday, Monday, Monday), and 30 mg for the following three
days (, Monday, Monday). Patient advised to use a calendar to ensure proper tapering and adherence to the dosing schedule. Prescription sent to pharmacy for immediate pickup.
*Pulse Oximetry
SaO2: 98
Oxygen Mode of Delivery: Room air
Patient hypoxic: no (98)
*Critical Care Note
Total Time (30-74mins, 75-104mins- exclusive of procedures): Not Applicable
ED Attending Note
-
Portions of this chart may have been created with voice recognition software.� Occasional wrong word or��sound alike� substitutions may have occurred due to the inherent limitations of voice recognition software.
Discharge Plan
Departure
Patient Disposition: Home (Routine Discharge)
Date of Disposition: 08/08/25
Time of Disposition: 15:05
Patient with high blood pressure during this ER visit?: Yes
Condition: Fair
Covid-19: Not Applicable
Discharge Problem:
Dermatitis
Instructions: Skin rash - ED (DC)
Prescriptions:
New
prednisone 10 mg Tablet
See Rx Instructions .ROUTE .COMPLEX Qty: 45 0RF
Rx Instructions:
Take By Mouth:
50 mg daily x3 days, 40 mg daily x3 days,
30 mg daily x3 days, 20 mg daily x3 days,
10 mg daily x3 days
No Action
(DME) Space [facility] Spacer
See Rx Instructions .Route Qty: 1 0RF
Rx Instructions:
As directed
prazosin 1 mg Capsule
1 mg PO BID
ondansetron HCl 8 mg Tablet
8 mg PO Q8H PRN (Reason: nausea)
phenazopyridine 200 mg Tablet
200 mg PO TID PRN (Reason: dysuria)
clonazepam 0.5 mg Tablet
0.5 mg PO BID
melatonin 3 mg Tablet
3 mg PO HS PRN (Reason: difficulty sleeping)
levothyroxine 25 mcg Tablet
25 mcg PO DAILY
lamotrigine 25 mg Tablet
50 mg PO DAILY
terbinafine HCl 250 mg Tablet
250 mg PO DAILY
ziprasidone HCl 20 mg Capsule
20 mg PO DAILY
dicyclomine 20 mg Tablet
20 mg PO QID
hydrochlorothiazide 25 mg Tablet
25 mg PO DAILY
ziprasidone HCl 40 mg Capsule
40 mg PO DAILY
nystatin 100,000 unit/gram Powder
1 applic TOPICAL BID
hydroxyzine pamoate 25 mg Capsule
25 mg PO QID PRN (Reason: anxiety, hives, nausea)
escitalopram oxalate 20 mg Tablet
20 mg PO DAILY
nitrofurantoin monohyd/m-cryst 100 mg Capsule
100 mg PO BID
albuterol sulfate 90 mcg/actuation HFA aerosol inhaler
2 puff INHALATION Q4HPRN PRN (Reason: shortness of breath)
famotidine 20 mg Tablet
20 mg PO DAILY Qty: 30 0RF
pantoprazole 40 mg Tablet,Delayed Release (Dr/Ec)
40 mg PO DAILY Qty: 30 0RF
prednisone 10 mg Tablet
See Rx Instructions .ROUTE .COMPLEX Qty: 30 0RF
Rx Instructions:
Take By Mouth:
40 mg daily x3 days, 30 mg daily x3 days,
20 mg daily x3 days, 10 mg daily x3 days.
Referrals:
Osiel Thomas MD [Family Provider, [facility]]
Activity Restrictions/Additional Instructions:
Were not sure the cause of rash but you said that the muffler tender said it was contact dermatitis. I did send a level to test for your Lamictal to make sure you are not having any toxicity from that. Does not seem likely.
So in the meantime you can try prednisone once a day
You can do 50 mg once a day for 3 days in a row, then 40 mg once a day for 3 days in a row, then 30 mg once a day for 3 days in a row, then 20 mg once a day for 3 days in a row, then 10 mg once a day for 3 days in a row. This is an extended taper.
Make sure to pay attention to the calendar and take the medication as directed.
Return for fever, confusion, vomiting, or any concerns
Interventions
Interventions:
*General Assessment Last Done: 08/08/25 11:14
*Neglect/Abuse Screening Last Done: 08/08/25 11:14
*ED COVID-19 Vaccine History Last Done: 08/08/25 11:14
*ED Influenza Vaccine History Last Done: 08/08/25 11:14
[facility] Risk Assessment Tool Last Done: 08/08/25 15:25
*Risk Screen - Suicide (C-SSRS) Last Done: 08/08/25 11:14
*Nursing Disposition Last Done: 08/08/25 15:25
ED- Cardiac Assessment Last Done: 08/08/25 15:25
ED- Pulmonary Assessment Last Done: 08/08/25 15:25
ED-Skin Assessment Last Done: 08/08/25 13:39
Discharge Date and Time
Discharge Date/Time: 08/08/25 15:26
Print Language: BENGALI
== END 2025-08-08 15:26 | disposition home or self-care (01) ==
LOC: EMR 10:53
PROVIDERS: Physician Assistant; EMERGENCY PHYSICIAN Emergency Medicine; FAMILY PHYSICIAN Family Medicine
DX: L30.9 Dermatitis, unspecified (principal); I10 Essential (primary) hypertension; J45.909 Unspecified asthma, uncomplicated; F31.9 Bipolar disorder, unspecified; F41.9 Anxiety disorder, unspecified; Z91.040 Latex allergy status; Z82.49 Family history of ischemic heart disease and other diseases of the circulatory system
CPT/HCPCS: 99284; 96374; 80053; 80175; 85025